=== PATIENT | female | born 1950 | race Caucasian/White ===

== ENCOUNTER 2018-05-28 09:28 | Observation (INO) | payer MEDICARE ==
[2018-05-28 10:54] LABS: Basophils % (Auto) 0.9 % (0.0-1.8); Eosinophils % (Auto) 0.3 % (0.0-4.3); Hematocrit 37.5 % (30.3-42.9); Lymphocytes % (Auto) 24.7 % (13.4-35.0); Mean Corpuscular HGB Conc 32 % (30-34); Mean Corpuscular Hemoglobin 26 pg (28-32); Mean Corpuscular Volume 81 fl (79-97); Monocytes # (Auto) 0.7 K/mm3 (0.0-0.8); Monocytes % (Auto) 15.9 % (0.0-7.3); Platelet Count 154 K/mm3 (140-440); Red Blood Count 4.61 M/mm3 (3.65-5.03); Red Cell Distribution Width 15.2 % (13.2-15.2)
[2018-05-28 11:05] LABS: BUN/Creatinine Ratio 16; Blood Urea Nitrogen 11 mg/dL (7-17); Calcium 9.4 mg/dL (8.4-10.2); Hemolysis Index 5
--- NOTE | 2018-05-28 11:32 | Emergency Department Report ---
ED Palpitations HPI - General Chief Complaint: Arrhythmia/Palpitations Stated Complaint: HEART FLUTTERS Time Seen by Provider: 05/28/18 11:18 Source: patient, EMS Mode of arrival: Stretcher Limitations: Other - History of Present Illness Initial Comments: 68yo female with PMHx of HTN, came in complaining of chest pain and palpitations. Per daughter pt was recently admitted to hospital in [place] and had workup done there for syncope and she was discharged and this morning she started to have palpitations and chest pain. Pt denies any fever, chills. Pt is under no acute distress. she is relaxing in bed MD Complaint: rapid heart beat Onset/Timin -: days(s) Context: occured during rest Associated Symptoms: chest pain. denies: shortness of breath, syncope, near- syncope, nausea/vomiting, anxiety, diaphoresis, cough, parasthesias, feeling of impending doom, muscle cramps - Related Data Home Medications Medication Instructions Recorded Confirmed Last Taken Amlodipine Besylate [Norvasc] 5 mg PO QDAY 03/10/18 03/10/18 Unknown AtorvaSTATin [Lipitor] 20 mg PO QHS 03/10/18 03/10/18 Unknown Quetiapine Fumarate [SEROquel] 50 mg PO QHS 03/10/18 03/10/18 Unknown clonazePAM 1 mg PO QDAY PRN 03/10/18 03/10/18 Unknown Allergies Allergy/AdvReac Type Severity Reaction Status Date / Time aspirin Allergy Hives Verified 03/10/18 00:19 shellfish derived Allergy Hives Verified 03/10/18 00:19 iv dye Allergy Hives Uncoded 03/10/18 00:19 ED Review of Systems ROS: Stated complaint: HEART FLUTTERS Other details as noted in HPI Constitutional: denies: chills, fever Eyes: denies: eye pain, eye discharge, vision change ENT: denies: ear pain, throat pain Respiratory: denies: cough, shortness of breath, wheezing Cardiovascular: denies: chest pain, palpitations Endocrine: no symptoms reported Gastrointestinal: denies: abdominal pain, nausea, diarrhea Genitourinary: denies: urgency, dysuria, discharge Musculoskeletal: denies: back pain, joint swelling, arthralgia Skin: denies: rash, lesions Neurological: denies: headache, weakness, paresthesias Psychiatric: denies: anxiety, depression Hematological/Lymphatic: denies: easy bleeding, easy bruising ED Past Medical Hx - Past Medical History Previous Medical History?: Yes Hx Hypertension: Yes Hx CVA: Yes Hx Heart Attack/AMI: No Hx Congestive Heart Failure: No Hx Deep Vein Thrombosis: No Hx Seizures: No Hx Dementia: Yes Additional medical history: "brain bleed" - Surgical History Past Surgical History?: Yes Hx Coronary Stent: No Hx Open Heart Surgery: No Hx Pacemaker: No Hx Internal Defibrillator: No Hx Cholecystectomy: Yes Hx Appendectomy: Yes Hx Breast Surgery: No - Social History Smoking Status: Never Smoker Substance Use Type: None - Medications Home Medications: Home Medications Medication Instructions Recorded Confirmed Last Taken Type Amlodipine Besylate [Norvasc] 5 mg PO QDAY 03/10/18 03/10/18 Unknown History AtorvaSTATin [Lipitor] 20 mg PO QHS 03/10/18 03/10/18 Unknown History Quetiapine Fumarate [SEROquel] 50 mg PO QHS 03/10/18 03/10/18 Unknown History clonazePAM 1 mg PO QDAY PRN 03/10/18 03/10/18 Unknown History ED Physical Exam - General Limitations: Other General appearance: alert, in no apparent distress - Head Head exam: Present: atraumatic, normocephalic - Eye Eye exam: Present: normal appearance - ENT ENT exam: Present: mucous membranes moist - Neck Neck exam: Present: normal inspection - Respiratory Respiratory exam: Present: normal lung sounds bilaterally. Absent: respiratory distress - Cardiovascular Cardiovascular Exam: Present: regular rate, normal rhythm. Absent: systolic murmur, diastolic murmur, rubs, gallop - GI/Abdominal GI/Abdominal exam: Present: soft, normal bowel sounds - Extremities Exam Extremities exam: Present: normal inspection - Back Exam Back exam: Present: normal inspection - Neurological Exam Neurological exam: Present: alert, oriented X3 - Psychiatric Psychiatric exam: Present: normal affect, normal mood - Skin Skin exam: Present: warm, dry, intact, normal color. Absent: rash ED Course Vital Signs 05/28/18 05/28/18 10:11 10:18 Temperature 97.5 F L Pulse Rate 72 Respiratory 14 Rate Blood Pressure 137/73 O2 Sat by Pulse 98 Oximetry 68yo female with palpitations and chest pain that is resolved, pts daughter states that she had a syncope workup done at [place] and now has had palpitations today, her chest pain is resolved at this time and will be admitted to hospitalist overnight ED Medical Decision Making - Lab Data Result diagrams: 05/28/18 10:27 05/28/18 10:27 Critical care attestation.: If time is entered above; I have spent that time in minutes in the direct care of this critically ill patient, excluding procedure time. ED Disposition Clinical Impression: Chest pain, Palpitations Disposition: OP ADMIT IP TO THIS HOSP Is pt being admited?: Yes Condition: Stable Instructions: Chest Pain (ED) Referrals: PRIMARY CARE, [Primary Care Provider] - 3-5 Days
[2018-05-28] MEDS ORDERED: PLAVIX PO ONE (11:34)
--- NOTE | 2018-05-28 11:43 | XRay Report ---
AP CHEST: HISTORY: Palpitations AP view of the chest demonstrates a normal mediastinal and cardiac contour with clear lungs and normal bony and soft tissue structures. IMPRESSION: Unremarkable AP chest. No change since 03/10/18.
[2018-05-28] MEDS ORDERED: ATIVAN PO ONE ×2 (12:33→16:44)
[2018-05-28] MEDS ORDERED: PERCOCET 5/325 PO PRN (20:50)
[2018-05-28] MEDS ORDERED: AMBIEN PO PRN (20:50)
[2018-05-28] MEDS ORDERED: SODIUM CHLORIDE FLUSH SYRINGE 10 ML IV PRN (20:50)
[2018-05-28] MEDS ORDERED: TYLENOL PO PRN (20:50)
[2018-05-28] MEDS ORDERED: ZOFRAN IV PRN (20:50)
[2018-05-28] MEDS ORDERED: MORPHINE IV PRN (20:50)
--- NOTE | 2018-05-28 20:50 | Event Note ---
Date: 05/28/18 Please see dictated history and physical in the reports Chest pain rule out [place] Ventricular arrhythmias
[2018-05-28] MEDS ORDERED: D5NS 1,000 ML IV SCH (21:00)
[2018-05-28] MEDS: SODIUM CHLORIDE FLUSH SYRINGE 10 ML IV SCH (21:34)
[2018-05-28] MEDS: HALDOL PO SCH (21:35)
[2018-05-28] MEDS: NORVASC PO SCH (21:36)
[2018-05-28] MEDS: PAXIL PO SCH (21:45)
[2018-05-28] MEDS ORDERED: BENADRYL PO SCH (22:00)
[2018-05-28 22:19] LABS: Bacteria,Urine 1+ /HPF (Negative); Bilirubin,Urine NEG (Negative); Blood,Urine SM (Negative); Color,Urine Yellow (Yellow); Protein,Urine <15 mg/dL mg/dL (Negative); Urobilinogen,Urine < 2.0 mg/dL (<2.0)
[2018-05-29 06:25] LABS: Basophils % (Auto) 0.6 % (0.0-1.8); Eosinophils % (Auto) 0.1 % (0.0-4.3); Hematocrit 39.1 % (30.3-42.9); Hemoglobin 12.7 gm/dl (10.1-14.3); Lymphocytes # (Auto) 0.9 K/mm3 (1.2-5.4); Lymphocytes % (Auto) 14.1 % (13.4-35.0); Mean Corpuscular HGB Conc 33 % (30-34); Mean Corpuscular Volume 80 fl (79-97); Monocytes # (Auto) 0.6 K/mm3 (0.0-0.8); Monocytes % (Auto) 9.8 % (0.0-7.3); Platelet Count 150 K/mm3 (140-440); Red Blood Count 4.91 M/mm3 (3.65-5.03); Red Cell Distribution Width 14.9 % (13.2-15.2)
[2018-05-29 06:33] LABS: Alanine Aminotransferase 13 units/L (7-56); BUN/Creatinine Ratio 13; Blood Urea Nitrogen 9 mg/dL (7-17); Calcium 8.9 mg/dL (8.4-10.2); Hemolysis Index 18
[2018-05-29 06:41] LABS: Mean Corpuscular Hemoglobin 26 pg (28-32)
--- NOTE | 2018-05-29 08:05 | History and Physical Report ---
CHIEF COMPLAINT: Palpitations and chest pain of 1-day duration. HISTORY OF PRESENT ILLNESS: A 68-year-old female who comes in for chest pain and palpitations. The patient was recently admitted to [facility] and workup was done for syncope and was discharged. Workup was negative. The patient continued to have palpitations and chest pain, hence the admission. No recent travel, other than the travel to [place]. No shortness of breath. No orthopnea. The patient has near syncope recently. No diaphoresis. No exacerbating or relieving factors. PAST MEDICAL HISTORY: Significant for hypertension, hyperlipidemia, bipolar disorder. CURRENT MEDICATIONS: Amlodipine 5 mg once a day, Lipitor 20 mg once a day, Seroquel 50 mg once a day, and clonazepam 1 mg p.o. daily. PAST SURGICAL HISTORY: Appendectomy in the past. SOCIAL HISTORY: Does not smoke. No alcohol. No recreational drugs. FAMILY HISTORY: Hypertension. REVIEW OF SYSTEMS: Significant for chest pain and palpitations. Slight shortness of breath on exertion. Otherwise, review of systems is negative. A 14-point review of systems done. PHYSICAL EXAMINATION: GENERAL: Elderly female, cooperative during examination. VITAL SIGNS: Blood pressure is 141/80, temperature 98.9, pulse is 93, respirations 18, sats are 99%. HEENT: Unremarkable. Pupils equal and reactive. NECK: Supple, no lymphadenopathy, no thyromegaly. LUNGS: Clear to auscultation and percussion. Good air entry. CARDIOVASCULAR: S1, S2 heard. No gallop, no murmur, no rub. Apical impulse in left fifth intercostal space and midclavicular line. ABDOMEN: Soft and benign. No hepatosplenomegaly. No guarding, no rigidity. Hernial orifices are normal. EXTREMITIES: Good pedal pulses. No pedal edema. CENTRAL NERVOUS SYSTEM: Alert and oriented x 4, nonfocal exam. LABORATORY DATA: Significant for white count of 4200, H and H is 12.0 and 37.5, platelet count of 154,000. CMP is negative. Urine pH is 8.0, otherwise negative. EKG shows frequent PVCs. Heart rate of about 76 per minute. Chest x-ray was no acute findings. Unremarkable AP chest. ASSESSMENT AND PLAN: 1. Chest pain, rule out myocardial infarction. Chest pain protocol. Lexiscan in the morning. 2. Dyspnea. Echocardiogram ordered. 3. Premature ventricular contractions. Cardiology consult requested for possible antiarrhythmics or no antiarrhythmics. 4. Hypertension. Continue amlodipine. 5. Hyperlipidemia. Continue atorvastatin 20 mg at bedtime. 6. Bipolar disorder. Continue Seroquel 50 mg p.o. at bedtime. 7. Deep venous thrombosis prophylaxis, Lovenox 40 mg subcutaneous daily. [facility]# [id number] VSM/NTS
[2018-05-29] MEDS ORDERED: LEXISCAN IV ONE (10:45)
[2018-05-29] MEDS: PAXIL PO SCH (12:06)
[2018-05-29] MEDS: HALDOL PO SCH (12:07)
[2018-05-29] MEDS: NORVASC PO SCH (12:12)
[2018-05-29] MEDS: SODIUM CHLORIDE FLUSH SYRINGE 10 ML IV SCH (12:17)
--- NOTE | 2018-05-29 14:34 | Progress Note ---
Hospitalist Physical - Constitutional Vitals: Temp Pulse Resp BP Pulse Ox 98.2 F 100 H 20 145/82 96 05/29/18 12:00 05/29/18 12:12 05/29/18 12:00 05/29/18 12:12 05/29/18 12:10 Results - Labs CBC & Chem 7: 05/29/18 02:49 05/29/18 02:49 Labs: Laboratory Last Values WBC 6.4 K/mm3 (4.5-11.0) 05/29/18 02:49 RBC 4.91 M/mm3 (3.65-5.03) 05/29/18 02:49 Hgb 12.7 gm/dl (10.1-14.3) 05/29/18 02:49 Hct 39.1 % (30.3-42.9) 05/29/18 02:49 MCV 80 fl (79-97) 05/29/18 02:49 MCH 26 pg (28-32) L 05/29/18 02:49 MCHC 33 % (30-34) 05/29/18 02:49 RDW 14.9 % (13.2-15.2) 05/29/18 02:49 Plt Count 150 K/mm3 (140-440) 05/29/18 02:49 Lymph % (Auto) 14.1 % (13.4-35.0) 05/29/18 02:49 [place] % (Auto) 9.8 % (0.0-7.3) H 05/29/18 02:49 Eos % (Auto) 0.1 % (0.0-4.3) 05/29/18 02:49 Baso % (Auto) 0.6 % (0.0-1.8) 05/29/18 02:49 Lymph # 0.9 K/mm3 (1.2-5.4) L 05/29/18 02:49 [place] # 0.6 K/mm3 (0.0-0.8) 05/29/18 02:49 Eos # 0.0 K/mm3 (0.0-0.4) 05/29/18 02:49 Baso # 0.0 K/mm3 (0.0-0.1) 05/29/18 02:49 Seg Neutrophils % 75.4 % (40.0-70.0) H 05/29/18 02:49 Seg Neutrophils # 4.9 K/mm3 (1.8-7.7) 05/29/18 02:49 Sodium 140 mmol/L (137-145) 05/29/18 02:49 Potassium 3.6 mmol/L (3.6-5.0) 05/29/18 02:49 Chloride 96.5 mmol/L (98-107) L 05/29/18 02:49 Carbon Dioxide 26 mmol/L (22-30) 05/29/18 02:49 Anion Gap 21 mmol/L 05/29/18 02:49 BUN 9 mg/dL (7-17) 05/29/18 02:49 Creatinine 0.7 mg/dL (0.7-1.2) 05/29/18 02:49 Estimated GFR > 60 ml/min 05/29/18 02:49 BUN/Creatinine Ratio 13 % 05/29/18 02:49 Glucose 84 mg/dL (65-100) 05/29/18 02:49 Hemoglobin A1c 5.8 % (4-6) 05/28/18 21:09 Calcium 8.9 mg/dL (8.4-10.2) 05/29/18 02:49 Magnesium 1.80 mg/dL (1.7-2.3) 05/29/18 08:48 Total Bilirubin 0.30 mg/dL (0.1-1.2) 05/29/18 02:49 AST 24 units/L (5-40) 05/29/18 02:49 ALT 13 units/L (7-56) 05/29/18 02:49 Alkaline Phosphatase 77 units/L (35-129) 05/29/18 02:49 Troponin T < 0.010 ng/mL (0.00-0.029) 05/29/18 08:48 Total Protein 6.8 g/dL (6.3-8.2) 05/29/18 02:49 Albumin 4.0 g/dL (3.9-5) 05/29/18 02:49 Albumin/Globulin Ratio 1.4 % 05/29/18 02:49 TSH 2.050 mlU/mL (0.270-4.200) 05/29/18 10:57 Urine Color Yellow (Yellow) 05/28/18 21:56 Urine Turbidity Clear (Clear) 05/28/18 21:56 Urine pH 8.0 (5.0-7.0) H 05/28/18 21:56 Ur Specific [place] 1.011 (1.003-1.030) 05/28/18 21:56 Urine Protein <15 mg/dl mg/dL (Negative) 05/28/18 21:56 Urine Glucose (UA) Neg mg/dL (Negative) 05/28/18 21:56 Urine Ketones Neg mg/dL (Negative) 05/28/18 21:56 Urine Blood Sm (Negative) 05/28/18 21:56 Urine Nitrite Neg (Negative) 05/28/18 21:56 Urine Bilirubin Neg (Negative) 05/28/18 21:56 Urine Urobilinogen < 2.0 mg/dL (<2.0) 05/28/18 21:56 Ur Leukocyte Esterase Neg (Negative) 05/28/18 21:56 Urine WBC (Auto) 2.0 /HPF (0.0-6.0) 05/28/18 21:56 Urine RBC (Auto) 8.0 /HPF (0.0-6.0) 05/28/18 21:56 U Epithel Cells (Auto) < 1.0 /HPF (0-13.0) 05/28/18 21:56 Urine Bacteria (Auto) 1+ /HPF (Negative) 05/28/18 21:56
--- NOTE | 2018-05-29 14:44 | Consultation ---
History of Present Illness Consult date: 05/29/18 Consult reason: other (palpitations) History of present illness: The patient is a 68-year-old woman who was admitted to the hospital reportedly with complaints of "palpitations" or "flutters". There was no report of his pain or shortness of breath On my assessment, the patient has advanced dementia. She is not oriented to time place and person and situation. My interview, he is unable to articulate any symptoms or the reason for her being in the hospital. Her poor mentation also manifested with patient referring to a hospital staff as her own daughter. Cardiac workup done includes ECG that showed a normal sinus rhythm with left axis deviation, otherwise normal ECG. Cardiac enzymes are negative. A recent echocardiogram February 2018 demonstrated well-preserved left ventricular systolic function with ejection fraction 50-55%. A thallium stress test was ordered by the medical service in addition to a cardiac consultation. Past History Past Medical History: hypertension Medications and Allergies Allergies Allergy/AdvReac Type Severity Reaction Status Date / Time aspirin Allergy Hives Verified 03/10/18 00:19 shellfish derived Allergy Hives Verified 03/10/18 00:19 iv dye Allergy Hives Uncoded 03/10/18 00:19 Home Medications Medication Instructions Recorded Confirmed Last Taken Type Amlodipine Besylate [Norvasc] 5 mg PO QDAY 03/10/18 05/28/18 05/27/18 History AtorvaSTATin [Lipitor] 20 mg PO QHS 03/10/18 05/28/18 05/27/[address] [DepaKOTE DR] 500 mg PO BID 05/28/18 05/28/18 05/27/18 History Haloperidol [Haldol] 1 mg PO BID 05/28/18 05/28/18 05/27/18 History PARoxetine [Paxil] 20 mg PO DAILY 05/28/18 05/28/18 05/27/18 History diphenhydrAMINE [Benadryl CAP] 50 mg PO QHS 05/28/18 05/28/18 05/27/18 History Active Meds: Active Medications Acetaminophen (Tylenol) 650 mg PO Q4H PRN PRN Reason: Pain MILD(1-3)/Fever >100.5/GONZALEZ Amlodipine Besylate (Norvasc) 5 mg PO QDAY RITO Last Admin: 05/29/18 12:12 Dose: 5 mg Atorvastatin Calcium (Lipitor) 20 mg PO QHS [facility] Last Admin: 05/28/18 21:36 Dose: 20 mg Diphenhydramine HCl (Benadryl) 50 mg PO QHS [facility] Last Admin: 05/28/18 21:35 Dose: 50 mg Divalproex Sodium (Depakote Dr) 500 mg PO BID [facility] Last Admin: 05/29/18 12:07 Dose: 500 mg Enoxaparin Sodium (Lovenox) 40 mg SUB-Q QDAY@2200 [facility] Haloperidol (Haldol) 1 mg PO BID [facility] Last Admin: 05/29/18 12:07 Dose: 1 mg Dextrose/Sodium Chloride (D5ns) 1,000 mls @ 75 mls/hr IV DIRECT [facility] Last Admin: 05/28/18 21:33 Dose: 75 mls/hr Morphine Sulfate (Morphine) 2 mg IV Q4H PRN PRN Reason: Pain, Moderate (4-6) Ondansetron HCl (Zofran) 4 mg IV Q8H PRN PRN Reason: Nausea And Vomiting Oxycodone/Acetaminophen (Percocet 5/325) 1 tab PO Q6H PRN PRN Reason: Pain, Moderate (4-6) Last Admin: 05/29/18 12:08 Dose: 1 tab Paroxetine HCl (Paxil) 20 mg PO DAILY [facility] Last Admin: 05/29/18 12:06 Dose: 20 mg Sodium Chloride (Sodium Chloride Flush Syringe 10 Ml) 10 ml IV BID [facility] Last Admin: 05/29/18 12:17 Dose: 10 ml Sodium Chloride (Sodium Chloride Flush Syringe 10 Ml) 10 ml IV PRN PRN PRN Reason: LINE FLUSH Zolpidem Tartrate (Ambien) 5 mg PO QHS PRN PRN Reason: Insomnia Review of Systems ROS unobtainable: due to mental status Physical Examination Vital Signs Pulse Resp BP 72 10 L 137/73 05/28/18 10:09 05/28/18 10:09 05/28/18 10:09 General appearance: no acute distress, other (patient is confused and disoriented due to advanced dementia) HEENT: Positive: PERRL Neck: Positive: neck supple Cardiac: Positive: Reg Rate and Rhythm Lungs: Positive: clear to auscultation Neuro: Positive: Grossly Intact Abdomen: Positive: Soft Female genitourinary: deferred Skin: Positive: Clear Extremities: Absent: edema Results 05/29/18 02:49 05/29/18 02:49 Cardiac Enzymes 05/29/18 Range/Units 02:49 AST 24 (5-40) units/L CBC 05/29/18 Range/Units 02:49 WBC 6.4 (4.5-11.0) K/mm3 RBC 4.91 (3.65-5.03) M/mm3 Hgb 12.7 (10.1-14.3) gm/dl Hct 39.1 (30.3-42.9) % Plt Count 150 (140-440) K/mm3 Lymph # 0.9 L (1.2-5.4) K/mm3 [place] # 0.6 (0.0-0.8) K/mm3 Eos # 0.0 (0.0-0.4) K/mm3 Baso # 0.0 (0.0-0.1) K/mm3 Comprehensive Metabolic Panel 05/29/18 Range/Units 02:49 Sodium 140 (137-145) mmol/L Potassium 3.6 (3.6-5.0) mmol/L Chloride 96.5 L (98-107) mmol/L Carbon Dioxide 26 (22-30) mmol/L BUN 9 (7-17) mg/dL Creatinine 0.7 (0.7-1.2) mg/dL Glucose 84 (65-100) mg/dL Calcium 8.9 (8.4-10.2) mg/dL AST 24 (5-40) units/L ALT 13 (7-56) units/L Alkaline Phosphatase 77 (35-129) units/L Total Protein 6.8 (6.3-8.2) g/dL Albumin 4.0 (3.9-5) g/dL EKG interpretations - Telemetry EKG Rhythm: Sinus Rhythm Assessment and Plan - Patient Problems (1) Palpitations Current Visit: Yes Status: Acute Plan to address problem: Due to advanced dementia, I am unable to elicit any specific symptoms that would warrant further cardiac workup. Stress test will be canceled, patient is stable for discharge from a cardiac standpoint. If there is further subjective or objective evidence for arrhythmias, as outpatient we will recommend extended event monitoring.
--- NOTE | 2018-05-29 15:42 | Discharge Summary ---
Providers - Providers Date of Admission: 05/28/18 12:21 Date of discharge: 05/29/18 Attending physician: USMAN WEBB 05/28/18 20:50 Consult to Physician [CONS] Routine Comment: Consulting Provider: USMAN RUFF Physician Instructions: Reason For Exam: arrhythmias Primary care physician: VP HR [facility]ERS[facility] Hospitalization Condition: Fair Hospital course: Patient is 68 yo with dementia, hypertension, presented with chest pain and palpitations. Troponin was normal. She was admitted to rule out acute coronary . Cardiology was consulted and she was evaluated,. Patient had just had workup for syncope and chest pain recently at another hospital. She was therefore discharged home to follow as outpatient. Disposition: TO HOME OR SELFCARE - Discharge Diagnoses (1) Chest pain Status: Acute (2) Dementia Status: Acute (3) Hypokalemia Status: Acute (4) Palpitations Status: Acute (5) GERD (gastroesophageal reflux disease) Status: Acute (6) GERD (gastroesophageal reflux disease) Status: Acute Core Measure Documentation - Palliative Care Palliative Care/ Comfort Measures: Not Applicable - Core Measures Any of the following diagnoses?: none Exam - Constitutional Vitals: Temp Pulse Resp BP Pulse Ox 98.2 F 100 H 20 145/82 96 05/29/18 12:00 05/29/18 12:12 05/29/18 12:00 05/29/18 12:12 05/29/18 12:10 General appearance: Present: no acute distress Plan Activity: advance as tolerated Diet: low fat, low cholesterol, low salt Additional Instructions: 1.Follow up with PCP or [facility] in 1 week. 2.Follow up with Dr. Mesa, Cardiology in 1 week Follow up with: PRIMARY MD GUILLERMO [Primary Care Provider] - 3-5 Days
[2018-05-29 17:33] VITALS: BP 150/73
[2018-05-29] MEDS ORDERED: LOVENOX SUB-Q SCH (22:00)
--- NOTE | 2018-06-04 15:05 | Query- Chest Pain ---
Christi Adame___Luis Antonio Date:___06/04/2018 Jelena/CDS:__Melvina/Ken Phone#:___[phone] Exercise your independent professional judgment when responding to query. Questions asked do not imply a particular answer is desired or expected. We greatly appreciate your clarification on this issue. Clinical Documentation States: 68 Year old female was admitted on 05/28/2018 for arrhythmia. The H&P stated "Chest pain R/O [place]." Please document the etiology of Chest Pain: [ ] Myocardial Infarction [ ] Pneumonia [ ] Mediastinitis [ ] Costochondritis [ ] Pulmonary Embolism [ ] Coronary Artery Disease [x ] GERD [ ] Other: [ ] Comment/Explanation: Present on Admission: [x ] Yes (Y) [ ] Clinically undeterminable (W) [ ] No(N) Please document response in your Progress Notes and/or Discharge Summary and indicate if the condition was present on admission. MIGUEL
== END 2018-05-29 18:00 | disposition home or self-care (01) ==
LOC: ED 09:28 → INTOOBSV 12:21 → 4A 12:21
PROVIDERS: ADMIT Internal Medicine; ATTEND Internal Medicine
DX: R07.89 Other chest pain (principal); R00.2 Palpitations; I49.3 Ventricular premature depolarization; I10 Essential (primary) hypertension; E78.5 Hyperlipidemia, unspecified; E87.6 Hypokalemia; K21.9 Gastro-esophageal reflux disease without esophagitis; F31.9 Bipolar disorder, unspecified; F03.90 Unspecified dementia, unspecified severity, without behavioral disturbance, psychotic disturbance, mood disturbance, and anxiety; Z82.49 Family history of ischemic heart disease and other diseases of the circulatory system; Z86.73 Personal history of transient ischemic attack (TIA), and cerebral infarction without residual deficits
CPT/HCPCS: 36415; 71045; 80048; 80053; 81001; 83036; 83735; 84443; 84484; 85025; 87086; 93005; 93010; 96360; 96361; 99285; A9270; G0378; J2785; J7042

== ENCOUNTER 2019-01-02 18:12 | Inpatient (IN) | payer MEDICARE ==
[2019-01-02] MEDS ORDERED: ATIVAN IM STA (18:33)
--- NOTE | 2019-01-02 18:34 | Emergency Department Report ---
ED General Adult HPI - General Chief complaint: Neuro Symptoms/Deficit Stated complaint: NEURO ISSUES Time Seen by Provider: 01/02/19 18:28 Source: family, EMS (ems notes not available at time of chart dictation), RN notes reviewed, old records reviewed Mode of arrival: Stretcher Limitations: Altered Mental Status, Physical Limitation - History of Present Illness Initial comments: This is a 68-year-old female. The patient has a past medical history of stroke, dementia. History obtained from her daughter, Mrs. Deanna Velazquez; [phone] Patient is brought to the hospital by EMS for possible stroke and altered mental status. Last known well time was 6:00 PM last night. As per the daughter, patient has been walking with an unsteady gait, swinging and falling to the side, may have had a left-sided facial droop, and perhaps at one point had left arm weakness. These symptoms appear to have resolved. The patient denies complaints at this point in time. The patient's family indicates no fevers, cough, urinary symptoms that they're aware of. The patient is demented, and cannot describe exacerbating or relieving factors, qualitative nature of her symptoms, radiation, exacerbating or relieving factors. -: days(s) Location: left, upper extremity, lower extremity Quality: other Consistency: other Improves with: other Worsens with: other Associated Symptoms: confusion, weakness - Related Data Home Medications Medication Instructions Recorded Confirmed Last Taken RX: Amlodipine Besylate [Norvasc] 5 mg PO QDAY 03/10/18 01/02/19 1 Day Ago ~01/01/19 RX: AtorvaSTATin [Lipitor] 20 mg PO QHS 03/10/18 01/02/19 1 Day Ago ~01/01/19 RX: PARoxetine [Paxil] 20 mg PO DAILY 05/28/18 01/02/19 1 Day Ago ~01/01/19 RX: diphenhydrAMINE [Benadryl CAP] 50 mg PO QHS 05/28/18 01/02/19 1 Day Ago ~01/01/19 Benztropine [Cogentin] See Protocol PO QDAY 01/02/19 01/02/19 1 Day Ago ~01/01/19 Clopidogrel [Plavix] 75 mg PO QDAY 01/02/19 01/02/19 1 Day Ago ~01/01/19 Memantine HCl [Namenda] 10 mg PO BID 01/03/19 01/03/19 2 Days Ago ~01/01/19 RX: traZODone [Desyrel] 50 mg PO HS 01/03/19 01/03/19 2 Days Ago ~01/01/19 clonazePAM [Klonopin] 1 mg PO TID PRN 01/03/19 01/03/19 2 Days Ago ~01/01/19 Allergies Allergy/AdvReac Type Severity Reaction Status Date / Time aspirin Allergy Hives Verified 03/10/18 00:19 shellfish derived Allergy Hives Verified 03/10/18 00:19 iv dye Allergy Hives Uncoded 03/10/18 00:19 ED Review of Systems ROS: Stated complaint: NEURO ISSUES Other details as noted in HPI Comment: Unobtainable due to pts medical conditions ED Past Medical Hx - Past Medical History Hx Hypertension: Yes Hx CVA: Yes Hx Heart Attack/AMI: No Hx Congestive Heart Failure: No Hx Deep Vein Thrombosis: No Hx Seizures: No Hx Dementia: Yes Additional medical history: "brain bleed" - Surgical History Hx Coronary Stent: No Hx Open Heart Surgery: No Hx Pacemaker: No Hx Internal Defibrillator: No Hx Cholecystectomy: Yes Hx Appendectomy: Yes Hx Breast Surgery: No - Social History Smoking Status: Unknown if ever smoked - Medications Home Medications: Home Medications Medication Instructions Recorded Confirmed Last Taken Type RX: Amlodipine Besylate [Norvasc] 5 mg PO QDAY 03/10/18 01/02/19 1 Day Ago History ~01/01/19 RX: AtorvaSTATin [Lipitor] 20 mg PO QHS 03/10/18 01/02/19 1 Day Ago History ~01/01/19 RX: PARoxetine [Paxil] 20 mg PO DAILY 05/28/18 01/02/19 1 Day Ago History ~01/01/19 RX: diphenhydrAMINE [Benadryl CAP] 50 mg PO QHS 05/28/18 01/02/19 1 Day Ago History ~01/01/19 Benztropine [Cogentin] See Protocol PO QDAY 01/02/19 01/02/19 1 Day Ago History ~01/01/19 Clopidogrel [Plavix] 75 mg PO QDAY 01/02/19 01/02/19 1 Day Ago History ~01/01/19 Memantine HCl [Namenda] 10 mg PO BID 01/03/19 01/03/19 2 Days Ago History ~01/01/19 RX: traZODone [Desyrel] 50 mg PO HS 01/03/19 01/03/19 2 Days Ago History ~01/01/19 clonazePAM [Klonopin] 1 mg PO TID PRN 01/03/19 01/03/19 2 Days Ago History ~01/01/19 ED Physical Exam - General Limitations: Altered Mental Status, Physical Limitation General appearance: alert, anxious - Head Head exam: Present: atraumatic, normocephalic - Eye Eye exam: Present: normal appearance, EOMI. Absent: nystagmus - ENT ENT exam: Present: normal exam, normal orophraynx, mucous membranes moist, normal external ear exam - Neck Neck exam: Present: normal inspection, full ROM. Absent: tenderness, m eningismus - Respiratory Respiratory exam: Present: normal lung sounds bilaterally. Absent: respiratory distress - Cardiovascular Cardiovascular Exam: Present: regular rate, normal rhythm, normal heart sounds. Absent: bradycardia, tachycardia, irregular rhythm, systolic murmur, diastolic murmur, rubs, gallop - GI/Abdominal GI/Abdominal exam: Present: soft. Absent: distended, tenderness, guarding, rebound, rigid, pulsatile mass - Extremities Exam Extremities exam: Present: normal inspection, full ROM, pedal edema, other (2+ pulses noted in the bilateral upper, lower extremities. Compartments soft. No long bony tenderness. The pelvis is stable.). Absent: calf tenderness - Back Exam Back exam: Present: normal inspection, full ROM. Absent: tenderness, CVA tenderness (R), paraspinal tenderness, vertebral tenderness - Neurological Exam Neurological exam: Present: alert (alert to name. Follows commands. Does not know where she is. Does not know the month, day or week.), other (Extraocular movements intact. Tongue midline. No facial droop. Facial sensation intact to light touch in the V1, V2, V3 distribution bilaterally. 5 and 5 strength in 4 extremities.. Sensation is intact to light touch in 4 extremities.) - Psychiatric Psychiatric exam: Present: anxious - Skin Skin exam: Present: warm, dry, intact, normal color. Absent: rash ED Course Vital Signs 01/02/19 01/02/19 01/02/19 18:31 19:48 19:50 Temperature Pulse Rate Respiratory Rate Blood Pressure 174/82 138/96 138/96 Blood Pressure [Right] O2 Sat by Pulse 79 L Oximetry 01/02/19 01/02/19 01/02/19 20:00 20:15 20:16 Temperature 97.8 F Pulse Rate 55 L Respiratory 18 15 Rate Blood Pressure 124/72 Blood Pressure 124/72 [Right] O2 Sat by Pulse 100 98 Oximetry 01/02/19 01/02/19 01/02/19 20:25 21:15 23:41 Temperature Pulse Rate Respiratory Rate Blood Pressure 136/96 143/73 126/69 Blood Pressure [Right] O2 Sat by Pulse 100 100 Oximetry 01/03/19 00:13 Temperature 97.9 F Pulse Rate 66 Respiratory 18 Rate Blood Pressure 148/81 Blood Pressure 126/69 [Right] O2 Sat by Pulse 99 Oximetry - Reevaluation(s) Reevaluation #1: 01/02/19 19:49 Differential diagnosis, including not limited to: TIA, pneumonia, urinary tract infection, worsening dementia, physical debility Assessment and plan: 68-year-old female was less than well time was more than 24 hours prior to presentation, with an NIH score of 1 (for confusion), not saying TPA candidate for endovascular candidate given last known well time, with nonspecific examination. Patient moving 4 extremities, and has no obvious facial droop. Screening laboratory studies reviewed and are essentially unremarkable with the exception of mild hypokalemia. X-ray of the chest unremarkable, pelvis x-ray unremarkable, CT scan of the brain, cervical spine pending interpretation. Extensive discussion had with the patient's daughter regarding patient's underlying dementia. Daughter has given verbal permission for chemical sedation and physical restraint, if necessary, to allow for diagnostic workup. Reevaluation #2: 01/02/19 19:[address] Seven Easton to follow up on ct head ct c spine and contact hospital team to arrange admission Reevaluation #3: 01/03/19 10:18 ct head c spine negative ED Medical Decision Making - Lab Data Result diagrams: 01/02/19 19:09 01/02/19 19:09 Lab Results 01/02/19 01/02/19 01/02/19 Range/Units 19:09 19:09 19:09 WBC 4.9 (4.5-11.0) K/mm3 RBC 4.60 (3.65-5.03) M/mm3 Hgb 12.1 (10.1-14.3) gm/dl Hct 37.3 (30.3-42.9) % MCV 81 (79-97) fl MCH 26 L (28-32) pg MCHC 33 (30-34) % RDW 16.0 H (13.2-15.2) % Plt Count 175 (140-440) K/mm3 Lymph % (Auto) 13.9 (13.4-35.0) % [place] % (Auto) 7.4 H (0.0-7.3) % Eos % (Auto) 0.3 (0.0-4.3) % Baso % (Auto) 0.6 (0.0-1.8) % Lymph # 0.7 L (1.2-5.4) K/mm3 [place] # 0.4 (0.0-0.8) K/mm3 Eos # 0.0 (0.0-0.4) K/mm3 Baso # 0.0 (0.0-0.1) K/mm3 Seg Neutrophils % 77.8 H (40.0-70.0) % Seg Neutrophils # 3.8 (1.8-7.7) K/mm3 PT 13.2 (12.2-14.9) Sec. INR 0.95 (0.87-1.13) APTT 26.3 (24.2-36.6) Sec. Thrombin Time 17.3 (15.1-19.6) Sec. Sodium 139 (137-145) mmol/L Potassium 3.2 L (3.6-5.0) mmol/L Chloride 98.8 (98-107) mmol/L Carbon Dioxide 25 (22-30) mmol/L Anion Gap 18 mmol/L BUN 10 (7-17) mg/dL Creatinine 1.0 (0.7-1.2) mg/dL Estimated GFR 55 ml/min BUN/Creatinine Ratio 10 % Glucose 84 (65-100) mg/dL Calcium 9.4 (8.4-10.2) mg/dL Total Bilirubin 0.50 (0.1-1.2) mg/dL AST 17 (5-40) units/L ALT 8 (7-56) units/L Alkaline Phosphatase 67 (35-129) units/L Total Creatine Kinase 180 H (30-135) units/L CK-MB (CK-2) 1.1 (0.0-4.0) ng/mL CK-MB (CK-2) Rel Index 0.6 (0-4) Troponin T < 0.010 (0.00-0.029) ng/mL Total Protein 7.5 (6.3-8.2) g/dL Albumin 3.9 (3.9-5) g/dL Albumin/Globulin Ratio 1.1 % - EKG Data -: EKG Interpreted by Me EKG shows normal: sinus rhythm Rate: normal - EKG Data 01/02/19 19:51 Sinus, 83 bpm, QTC prolonged, left axis deviation, poor R-wave progression, abnormal EKG, not consistent with ST elevation myocardial infarction. - Radiology Data Radiology results: pending, image reviewed interpreted by me: X-ray the chest, x-ray of the pelvis negative for acute disease. DJD is noted. Critical care attestation.: If time is entered above; I have spent that time in minutes in the direct care of this critically ill patient, excluding procedure time. ED Disposition Clinical Impression: TIA (transient ischemic attack) Disposition: 09 OP ADMIT IP TO THIS HOSP Is pt being admited?: Yes Does the pt Need Aspirin: Yes Condition: Good - Assessment Assessment Interval: Baseline - Level of Consciousness 1a. Level of Consciousness: alert/keenly responsive - LOC Questions 1b. LOC Questions: answers 1 question correctly - LOC Command 1c. LOC Commands: performs tasks correctly - Best Gaze 2. Best Gaze: normal - Visual 3. Visual: no visual loss - Facial Palsy 4. Facial Palsy: normal symmetrical movement - Motor Arm 5b. Motor Arm Right: no drift 5a. Motor Arm Left: no drift - Motor Leg 6b. Motor Leg Right: no drift 6a. Motor Leg Left: no drift - Limb Ataxia 7. Limb Ataxia: absent - Sensory 8. Sensory: normal - Best Language 9. Best Language: no aphasia - Dysarthria 10. Dysarthria: normal - Extinction and Inattention 11. Extinction/Inattention: no abnormality - Scoring Total Score: 1 Stroke Severity: Minor Stroke
[2019-01-02 19:21] LABS: Basophils % (Auto) 0.6 % (0.0-1.8); Eosinophils % (Auto) 0.3 % (0.0-4.3); Hematocrit 37.3 % (30.3-42.9); Hemoglobin 12.1 gm/dl (10.1-14.3); Lymphocytes # (Auto) 0.7 K/mm3 (1.2-5.4); Lymphocytes % (Auto) 13.9 % (13.4-35.0); Mean Corpuscular HGB Conc 33 % (30-34); Mean Corpuscular Volume 81 fl (79-97); Monocytes # (Auto) 0.4 K/mm3 (0.0-0.8); Monocytes % (Auto) 7.4 % (0.0-7.3); Platelet Count 175 K/mm3 (140-440)
[2019-01-02 19:33] LABS: INR 0.95 (0.87-1.13)
[2019-01-02 19:34] LABS: Partial Thromboplastin Time 26.3 Sec. (24.2-36.6); Thrombin Time 17.3 Sec. (15.1-19.6)
[2019-01-02 19:38] LABS: Creatine Kinase MB 1.1 ng/mL (0.0-4.0)
[2019-01-02 19:39] LABS: Alanine Aminotransferase 8 units/L (7-56); Albumin 3.9 g/dL (3.9-5); BUN/Creatinine Ratio 10; Blood Urea Nitrogen 10 mg/dL (7-17); Calcium 9.4 mg/dL (8.4-10.2); Hemolysis Index 17
[2019-01-02] MEDS ORDERED: K-DUR PO ONE ×2 (19:46→23:08)
--- NOTE | 2019-01-02 19:48 | Cat Scan Report ---
FINAL REPORT EXAM: CT HEAD/BRAIN WO CON HISTORY: Stroke symptoms TECHNIQUE: CT head without contrast PRIORS: None. FINDINGS: No acute intra-axial or extra-axial hemorrhage is identified. There is no evidence of midline shift or mass effect. There is some generalized age related volume loss.. Brown-white matter differentiation is intact. No acute parenchymal abnormalities seen. Bony calvarium is grossly intact. Visualized portions of the mastoids and paranasal sinuses are unre markable. IMPRESSION: No acute intracranial findings
--- NOTE | 2019-01-02 19:57 | Cat Scan Report ---
FINAL REPORT EXAM: CT CERVICAL SPINE WO CON HISTORY: falls ams cant clear c spine TECHNIQUE: CT cervical spine with reconstructions PRIORS: None. FINDINGS: Vertebral bodies demonstrate normal height and alignment. There is disc space narrowing C4-C5-C5-C6 a nd C6-C7 with marginal anterior and posterior vertebral body osteophytes. The facet joints demonstrat e normal alignment. The spinous processes are intact. Craniocervical junction is unremarkable. C1 a nd C2 are intact. IMPRESSION: Degenerative disc disease from C4-C5 through C6-C7 No acute abnormality seen.
[2019-01-02] MEDS ORDERED: PLAVIX PO ONE (20:05)
[2019-01-02] MEDS ORDERED: PLAVIX ONE (23:09)
[2019-01-02] MEDS: HALDOL PO SCH (23:22)
[2019-01-03 01:43] LABS: Creatine Kinase MB 1.6 ng/mL (0.0-4.0)
[2019-01-03 06:44] LABS: Creatine Kinase MB 1.7 ng/mL (0.0-4.0)
--- NOTE | 2019-01-03 08:03 | History and Physical Report ---
CHIEF COMPLAINT: Weakness of the left side of the body. Other complaints include altered mental status and left facial drooping. HISTORY OF PRESENT ILLNESS: The patient is a 68-year-old female noted by the daughter who was giving the history that the patient had some change in mental status and was having unsteady gait, swaggering and falling to the left side with some left-sided weakness and left facial drooping. Also, there was no history of speech impairment. No history of visual impairment. EMS was called and the patient brought to the Emergency Room. PAST MEDICAL HISTORY: Pertinent for hypotension, cerebrovascular accident with left-sided weakness, dementia, and hemorrhagic stroke in the past. PAST SURGICAL HISTORY: Pertinent for cholecystectomy and appendectomy. FAMILY HISTORY: Noncontributory. SOCIAL HISTORY: The patient does not smoke, does not drink alcohol, and does not use illicit drugs. MEDICATIONS: The patient is on amlodipine besylate 5 mg by mouth daily, Lipitor 20 mg by mouth at bedtime, Depakote 500 mg by mouth twice daily, haloperidol 1 mg by mouth twice daily, Paxil 20 mg by mouth daily, Benadryl 50 mg by mouth at bedtime. ALLERGIES: The patient is allergic to ASPIRIN, SHELLFISH, IV DYE. REVIEW OF SYSTEMS: CONSTITUTIONAL: There is no fever, no chills, no diaphoresis. HEENT: There is no headache or sore throat. CARDIOVASCULAR SYSTEM: There is no chest pain or orthopnea. RESPIRATORY SYSTEM: There is no shortness of breath or cough. GASTROINTESTINAL SYSTEM: There is no nausea, no vomiting, no abdominal pain, diarrhea or constipation. NEUROLOGICAL SYSTEM: Left-sided weakness noted, left facial drooping noted. No altered mental status noted. MUSCULOSKELETAL SYSTEM: Weakness on the left side of the body noted. No joint swelling. DERMATOLOGICAL SYSTEM: There is no skin rash or itching. GENITOURINARY SYSTEM: There is no dysuria, hematuria, or flank pain. Rest of system review is normal. PHYSICAL EXAMINATION: GENERAL: At the time of exam, the patient was found to be alert, oriented to person only and not in acute distress. VITAL SIGNS: Shows temperature of 97.8, pulse of 65, respirations 16, blood pressure 124/72, O2 sat of 98% on room air. HEENT: Showed pupils to be equal, round, and reactive to light and accommodating. Extraocular motions are intact. NECK: Supple with no JVD or carotid bruits. CARDIOVASCULAR SYSTEM: Showed normal first and second heart sounds with no gallops or murmurs. RESPIRATORY SYSTEM: Showed good air entry on both sides of the lungs with no abnormal breath sounds. GASTROINTESTINAL SYSTEM: Showed abdomen to be full, soft, nontender with no organomegaly or rigidity. NEUROLOGIC: Showed weakness of the muscles on the left side compared to the right with no drooling of the face noted at this time and no loss of sensory function. Muscle strength is grade 2/6 on the left upper extremity compared to grade 5/6 on the right and muscle strength on the left lower extremity is grade 3/6 compared to grade 6/6 on the right. MUSCULOSKELETAL SYSTEM: Showed no joint swelling or tenderness. DERMATOLOGICAL SYSTEM: Showed no skin rash. GENITOURINARY SYSTEM: Showed no costovertebral angle tenderness. PERTINENT LABORATORY AND IMAGING STUDIES: The patient has CT of the head without contrast done that shows no acute intracranial process. Also, the patient has cervical CT done that shows degenerative disk disease from C4 to C5 through C6 to C7. The patient's lab results showed CBC with normal white count, normal hemoglobin and normal hematocrit with CBC differential showing elevated segmented neutrophil of 77.8%. The patient's potassium level showed a slightly lower level of 3.2 and the rest of chemistry was remarkable except for slight increase in total CPK of 180 with normal CK-MB and normal CK-MB percentage index as well as normal troponin DIAGNOSES: 1. Transient ischemic attack. 2. Hypokalemia. PLAN OF ACTION: 1. The patient will be admitted as inpatient to telemetry. 2. The patient will have MRI of the brain without contrast done this morning. 3. The patient will have bilateral carotid Doppler done this morning as well as 2D echo done this morning. 4. The patient will have physical therapy consult to evaluate and treat this morning and also speech therapy consult to evaluate and treat this morning. 5. The patient will remain n.p.o. until she passes the swallow test. 6. The patient will be on oxygen by nasal cannula at 2 liters per minute. 7. The patient will be on home medication as shown in the medication reconciliation section. 8. If the patient remains in the hospital until Saturday when the neurologist will be available, the patient will have neurology consult, but can always have a teleneurology consult if need be. JOB# [id number] OCN/NTS ASHERD
[2019-01-03] MEDS ORDERED: ASPIRIN PO ONE (11:00)
--- NOTE | 2019-01-03 13:04 | Progress Note ---
Assessment and Plan Assessment and plan: 68-year-old woman with past medical history of CVA, dementia, chronic left-sided weakness, previous hemorrhagic stroke in the past. The patient was brought in by daughter for altered mental status, which she described as unsteady swaggering gait and falling to her side, with worsening left-sided weakness. Per nursing staff patient has been refusing to open her mouth to eat or swallow anything Diagnosis Acute CVA? Dementia Hypokalemia Altered mental status Acute metabolic encephalopathy Plan Patient admitted on stroke protocol fup carotid dopplers pending echo and MRI/MRA brain Neurology consult Potassium has been repleted History Interval history: Afebrile Patient has been altered and confused, she has not been cooperative She has refused to open her mouth or ingest anything, refuse all her medications She was sent down for echocardiogram, but she was agitated and non-cooperative There is no vomiting, no obvious shortness of breath, patient has been confused but has not been violent Hospitalist Physical - Physical exam Narrative exam: General.: Appears well, no distress, nontoxic HEENT: Moist mucous membranes, extraocular muscles intact, no lymphadenopathy Neck: supple Cardiac: S1-S2 heard Lungs: clear to auscultation bilaterally Abdomen: soft , nontender, nondistended, bowel sounds positive Extremities: no edema clubbing or cyanosis Skin: no rash or lesions Neurologic: Patient is confused, no focal weakness Psych: Patient is confused - Constitutional Vitals: Temp Pulse Resp BP Pulse Ox 97.5 F L 56 L 16 133/7 96 01/03/19 12:00 01/03/19 12:00 01/03/19 12:00 01/03/19 12:00 01/03/19 12:00 Results - Labs CBC & Chem 7: 01/02/19 19:09 01/03/19 13:26 Labs: Laboratory Last Values WBC 4.9 K/mm3 (4.5-11.0) 01/02/19 19:09 RBC 4.60 M/mm3 (3.65-5.03) 01/02/19 19:09 Hgb 12.1 gm/dl (10.1-14.3) 01/02/19 19:09 Hct 37.3 % (30.3-42.9) 01/02/19 19:09 MCV 81 fl (79-97) 01/02/19 19:09 MCH 26 pg (28-32) L 01/02/19 19:09 MCHC 33 % (30-34) 01/02/19 19:09 RDW 16.0 % (13.2-15.2) H 01/02/19 19:09 Plt Count 175 K/mm3 (140-440) 01/02/19 19:09 Lymph % (Auto) 13.9 % (13.4-35.0) 01/02/19 19:09 [place] % (Auto) 7.4 % (0.0-7.3) H 01/02/19 19:09 Eos % (Auto) 0.3 % (0.0-4.3) 01/02/19 19:09 Baso % (Auto) 0.6 % (0.0-1.8) 01/02/19 19:09 Lymph # 0.7 K/mm3 (1.2-5.4) L 01/02/19 19:09 [place] # 0.4 K/mm3 (0.0-0.8) 01/02/19 19:09 Eos # 0.0 K/mm3 (0.0-0.4) 01/02/19 19:09 Baso # 0.0 K/mm3 (0.0-0.1) 01/02/19 19:09 Seg Neutrophils % 77.8 % (40.0-70.0) H 01/02/19 19:09 Seg Neutrophils # 3.8 K/mm3 (1.8-7.7) 01/02/19 19:09 PT 13.2 Sec. (12.2-14.9) 01/02/19 19:09 INR 0.95 (0.87-1.13) 01/02/19 19:09 APTT 26.3 Sec. (24.2-36.6) 01/02/19 19:09 Thrombin Time 17.3 Sec. (15.1-19.6) 01/02/19 19:09 Sodium 139 mmol/L (137-145) 01/02/19 19:09 Potassium 3.2 mmol/L (3.6-5.0) L 01/02/19 19:09 Chloride 98.8 mmol/L (98-107) 01/02/19 19:09 Carbon Dioxide 25 mmol/L (22-30) 01/02/19 19:09 Anion Gap 18 mmol/L 01/02/19 19:09 BUN 10 mg/dL (7-17) 01/02/19 19:09 Creatinine 1.0 mg/dL (0.7-1.2) 01/02/19 19:09 Estimated GFR 55 ml/min 01/02/19 19:09 BUN/Creatinine Ratio 10 % 01/02/19 19:09 Glucose 84 mg/dL (65-100) 01/02/19 19:09 Calcium 9.4 mg/dL (8.4-10.2) 01/02/19 19:09 Total Bilirubin 0.50 mg/dL (0.1-1.2) 01/02/19 19:09 AST 17 units/L (5-40) 01/02/19 19:09 ALT 8 units/L (7-56) 01/02/19 19:09 Alkaline Phosphatase 67 units/L (35-129) 01/02/19 19:09 Total Creatine Kinase 255 units/L (30-135) H 01/03/19 05:12 CK-MB (CK-2) 1.7 ng/mL (0.0-4.0) 01/03/19 05:12 CK-MB (CK-2) Rel Index 0.6 (0-4) 01/03/19 05:12 Troponin T < 0.010 ng/mL (0.00-0.029) 01/03/19 05:12 Total Protein 7.5 g/dL (6.3-8.2) 01/02/19 19:09 Albumin 3.9 g/dL (3.9-5) 01/02/19 19:09 Albumin/Globulin Ratio 1.1 % 01/02/19 19:09
[2019-01-03] MEDS ORDERED: ATIVAN IV NR (13:15)
--- NOTE | 2019-01-03 13:24 | Vascular Lab Report ---
FINAL REPORT EXAM: VL CAROTID DUPLEX BILAT HISTORY: TIA TECHNIQUE: Grayscale and color and spectral Doppler ultrasound imaging of the carotid arteries was p erformed. PRIORS: None. FINDINGS: Study is limited due to combative patient. No areas of complete occlusion. Normal waveforms are seen throughout. No aneurysm. Calcified atherosclerotic plaque is seen bilaterally. Normal flow is seen in the external carotid arteries. Antegrade flow is seen in the vertebral arteries. Peak systolic velocities in cm/s below: Right: CCA: 67 proximally, 47 distally ICA: 52 proximally, 64 mid, not visualized distally ECA: 50 Left: CCA: 95 proximally, 75 distally ICA: 52 proximally, 45 mid, not visualized distally ECA: 127 The right ICA:CCA ratio is 0.97. The left ICA:CCA ratio is 0.55. IMPRESSION: Less than 50 percent stenosis of the internal carotid arteries.
[2019-01-03] MEDS: NORVASC PO SCH (17:15)
[2019-01-03] MEDS: PAXIL PO SCH (17:16)
[2019-01-03] MEDS: HALDOL PO SCH ×2 (17:17→22:14)
[2019-01-03] MEDS: DESYREL PO SCH (22:14)
[2019-01-03] MEDS: BENADRYL PO SCH (22:16)
[2019-01-03] MEDS: NAMENDA PO SCH (22:16)
[2019-01-04] MEDS: PAXIL PO SCH (12:44)
[2019-01-04] MEDS: PLAVIX PO SCH (12:45)
[2019-01-04] MEDS: HALDOL PO SCH ×2 (12:45→23:11)
[2019-01-04] MEDS: COGENTIN PO SCH (12:49)
[2019-01-04] MEDS: NORVASC PO SCH (12:56)
[2019-01-04] MEDS: NAMENDA PO SCH ×2 (13:00→23:11)
--- NOTE | 2019-01-04 14:00 | Progress Note ---
Assessment and Plan Assessment and plan: 68-year-old woman with past medical history of CVA, dementia, chronic left-sided weakness, previous hemorrhagic stroke in the past. The patient was brought in by daughter for altered mental status, which she described as unsteady swaggering gait and falling to her side, with worsening left-sided weakness. all symptoms are now resolved Diagnosis Acute CVA? vs TIA? Dementia Hypokalemia Altered mental status Acute metabolic encephalopathy Systolic CHF, compensated Plan Patient admitted on stroke protocol carotid dopplers no sig stenosis echo shows EF of 40%, get stress test and cardiology consult fup MRI/MRA brain Neurology consult pending Potassium has been repleted History Interval history: Afebrile Patient has been altered and confused, she has not been cooperative no cough, no vomiting restless, which is her baseline There is no vomiting, no obvious shortness of breath, patient has been confused but has not been violent Hospitalist Physical - Physical exam Narrative exam: General.: Appears well, no distress, nontoxic HEENT: Moist mucous membranes, extraocular muscles intact, no lymphadenopathy Neck: supple Cardiac: S1-S2 heard Lungs: clear to auscultation bilaterally Abdomen: soft , nontender, nondistended, bowel sounds positive Extremities: no edema clubbing or cyanosis Skin: no rash or lesions Neurologic: Patient is confused,no focal weakness restless, which is her baseline Psych: Patient is confused, demented at baseline - Constitutional Vitals: Temp Pulse Resp BP Pulse Ox 97.4 F L 88 16 136/74 96 01/04/19 12:40 01/04/19 12:56 01/04/19 04:13 01/04/19 12:56 01/04/19 12:40 Results - Labs CBC & Chem 7: 01/02/19 19:09 01/03/19 13:26 Labs: Laboratory Last Values WBC 4.9 K/mm3 (4.5-11.0) 01/02/19 19:09 RBC 4.60 M/mm3 (3.65-5.03) 01/02/19 19:09 Hgb 12.1 gm/dl (10.1-14.3) 01/02/19 19:09 Hct 37.3 % (30.3-42.9) 01/02/19 19:09 MCV 81 fl (79-97) 01/02/19 19:09 MCH 26 pg (28-32) L 01/02/19 19:09 MCHC 33 % (30-34) 01/02/19 19:09 RDW 16.0 % (13.2-15.2) H 01/02/19 19:09 Plt Count 175 K/mm3 (140-440) 01/02/19 19:09 Lymph % (Auto) 13.9 % (13.4-35.0) 01/02/19 19:09 [place] % (Auto) 7.4 % (0.0-7.3) H 01/02/19 19:09 Eos % (Auto) 0.3 % (0.0-4.3) 01/02/19 19:09 Baso % (Auto) 0.6 % (0.0-1.8) 01/02/19 19:09 Lymph # 0.7 K/mm3 (1.2-5.4) L 01/02/19 19:09 [place] # 0.4 K/mm3 (0.0-0.8) 01/02/19 19:09 Eos # 0.0 K/mm3 (0.0-0.4) 01/02/19 19:09 Baso # 0.0 K/mm3 (0.0-0.1) 01/02/19 19:09 Seg Neutrophils % 77.8 % (40.0-70.0) H 01/02/19 19:09 Seg Neutrophils # 3.8 K/mm3 (1.8-7.7) 01/02/19 19:09 PT 13.2 Sec. (12.2-14.9) 01/02/19 19:09 INR 0.95 (0.87-1.13) 01/02/19 19:09 APTT 26.3 Sec. (24.2-36.6) 01/02/19 19:09 Thrombin Time 17.3 Sec. (15.1-19.6) 01/02/19 19:09 Sodium 139 mmol/L (137-145) 01/02/19 19:09 Potassium 3.5 mmol/L (3.6-5.0) L 01/03/19 13:26 Chloride 98.8 mmol/L (98-107) 01/02/19 19:09 Carbon Dioxide 25 mmol/L (22-30) 01/02/19 19:09 Anion Gap 18 mmol/L 01/02/19 19:09 BUN 10 mg/dL (7-17) 01/02/19 19:09 Creatinine 1.0 mg/dL (0.7-1.2) 01/02/19 19:09 Estimated GFR 55 ml/min 01/02/19 19:09 BUN/Creatinine Ratio 10 % 01/02/19 19:09 Glucose 84 mg/dL (65-100) 01/02/19 19:09 Calcium 9.4 mg/dL (8.4-10.2) 01/02/19 19:09 Total Bilirubin 0.50 mg/dL (0.1-1.2) 01/02/19 19:09 AST 17 units/L (5-40) 01/02/19 19:09 ALT 8 units/L (7-56) 01/02/19 19:09 Alkaline Phosphatase 67 units/L (35-129) 01/02/19 19:09 Total Creatine Kinase 255 units/L (30-135) H 01/03/19 05:12 CK-MB (CK-2) 1.7 ng/mL (0.0-4.0) 01/03/19 05:12 CK-MB (CK-2) Rel Index 0.6 (0-4) 01/03/19 05:12 Troponin T < 0.010 ng/mL (0.00-0.029) 01/03/19 05:12 Total Protein 7.5 g/dL (6.3-8.2) 01/02/19 19:09 Albumin 3.9 g/dL (3.9-5) 01/02/19 19:09 Albumin/Globulin Ratio 1.1 % 01/02/19 19:09 Nutrition/Malnutrition Assess - Dietary Evaluation Nutrition/Malnutrition Findings: Nutrition Notes Start: 01/03/19 13:47 Freq: Status: Active Protocol: Document 01/03/19 13:47 MARINO (Rec: 01/03/19 13:53 MARINO [id number] [email or web address]) Nutrition Notes Need for Assessment generated from: [employer] MST Initial or Follow up Assessment Current Diagnosis Stroke Other Pertinent Diagnosis TIA, Dementia Current Diet NPO Labs/Tests Reviewed Pertinent Medications Reviewed Height 5 ft 4 in Weight 44.39 kg [place] Body Weight (kg) 54.54 BMI 16.7 Weight Status Underweight Subjective/Other Information Pt screened for skin (Zackary score: 16) and malnutrition risks (poor appetite). Pt is confused and no family present at time of visit. MD ordered swallow eval. Burn Absent Trauma Absent Food Allergy Yes #2 Nutrition Diagnosis Underweight Etiology advanced age/dementia, poor appetite As Evidenced by Signs and Symptoms BMI 16.7 #1 Nutrition Diagnosis Inadequate oral intake Etiology recent TIA As Evidenced by Signs and Symptoms pt NPO Is patient on ventilator? No Is Patient Ambulatory and/or Out of Bed No REE-([facility]-confined to bed) 1144.872 Kcal/Kg value to use for calculation 35 Approximate Energy Requirements Using 1554 kcal/Kg Calculation Used for Recommendations Kcal/kg Additional Notes Pro needs 1.2-1.5g/k-67g/ day Fluid needs 1ml/kcal Nutrition Intervention Change Diet Order: Diet advancement when medically feasible Goal #1 Advance diet to meet nutrient needs Goal #2 Wt maintenance and/or gain Anticipated Discharge Needs: Unable to identify at this time Follow-Up By: 01/05/19 Additional Comments F/U: diet advancement, need for ONS
[2019-01-04] MEDS: DESYREL PO SCH (23:10)
[2019-01-04] MEDS: BENADRYL PO SCH (23:11)
--- NOTE | 2019-01-05 08:18 | Progress Note ---
Assessment and Plan Assessment and plan: 68-year-old woman with past medical history of CVA, dementia, chronic left-sided weakness, previous hemorrhagic stroke in the past. The patient was brought in by daughter for altered mental status, which she described as unsteady swaggering gait and falling to her side, with worsening left-sided weakness. Diagnosis Acute CVA? Dementia Hypokalemia Altered mental status Acute metabolic encephalopathy Plan Patient admitted on stroke protocol fup carotid dopplers pending echo and MRI/MRA brain Neurology consult pending Potassium has been repleted History Interval history: Afebrile Patient has been altered and confused, she has been cooperative no cough, no vomiting restless, which is her baseline There is no vomiting, no obvious shortness of breath, patient has been confused but has not been violent Hospitalist Physical - Physical exam Narrative exam: General.: Appears well, no distress, nontoxic HEENT: Moist mucous membranes, extraocular muscles intact, no lymphadenopathy Neck: supple Cardiac: S1-S2 heard Lungs: clear to auscultation bilaterally Abdomen: soft , nontender, nondistended, bowel sounds positive Extremities: no edema clubbing or cyanosis Skin: no rash or lesions Neurologic: Patient is confused, no focal weakness Psych: Patient is confused - Constitutional Vitals: Temp Pulse Resp BP Pulse Ox 98.0 F 52 L 18 119/60 100 01/05/19 04:40 01/05/19 04:40 01/05/19 04:40 01/05/19 04:40 01/05/19 04:40 Results - Labs CBC & Chem 7: 01/02/19 19:09 01/05/19 09:49 Labs: Laboratory Last Values WBC 4.9 K/mm3 (4.5-11.0) 01/02/19 19:09 RBC 4.60 M/mm3 (3.65-5.03) 01/02/19 19:09 Hgb 12.1 gm/dl (10.1-14.3) 01/02/19 19:09 Hct 37.3 % (30.3-42.9) 01/02/19 19:09 MCV 81 fl (79-97) 01/02/19 19:09 MCH 26 pg (28-32) L 01/02/19 19:09 MCHC 33 % (30-34) 01/02/19 19:09 RDW 16.0 % (13.2-15.2) H 01/02/19 19:09 Plt Count 175 K/mm3 (140-440) 01/02/19 19:09 Lymph % (Auto) 13.9 % (13.4-35.0) 01/02/19 19:09 [place] % (Auto) 7.4 % (0.0-7.3) H 01/02/19 19:09 Eos % (Auto) 0.3 % (0.0-4.3) 01/02/19 19:09 Baso % (Auto) 0.6 % (0.0-1.8) 01/02/19 19:09 Lymph # 0.7 K/mm3 (1.2-5.4) L 01/02/19 19:09 [place] # 0.4 K/mm3 (0.0-0.8) 01/02/19 19:09 Eos # 0.0 K/mm3 (0.0-0.4) 01/02/19 19:09 Baso # 0.0 K/mm3 (0.0-0.1) 01/02/19 19:09 Seg Neutrophils % 77.8 % (40.0-70.0) H 01/02/19 19:09 Seg Neutrophils # 3.8 K/mm3 (1.8-7.7) 01/02/19 19:09 PT 13.2 Sec. (12.2-14.9) 01/02/19 19:09 INR 0.95 (0.87-1.13) 01/02/19 19:09 APTT 26.3 Sec. (24.2-36.6) 01/02/19 19:09 Thrombin Time 17.3 Sec. (15.1-19.6) 01/02/19 19:09 Sodium 139 mmol/L (137-145) 01/02/19 19:09 Potassium 3.5 mmol/L (3.6-5.0) L 01/03/19 13:26 Chloride 98.8 mmol/L (98-107) 01/02/19 19:09 Carbon Dioxide 25 mmol/L (22-30) 01/02/19 19:09 Anion Gap 18 mmol/L 01/02/19 19:09 BUN 10 mg/dL (7-17) 01/02/19 19:09 Creatinine 1.0 mg/dL (0.7-1.2) 01/02/19 19:09 Estimated GFR 55 ml/min 01/02/19 19:09 BUN/Creatinine Ratio 10 % 01/02/19 19:09 Glucose 84 mg/dL (65-100) 01/02/19 19:09 Calcium 9.4 mg/dL (8.4-10.2) 01/02/19 19:09 Total Bilirubin 0.50 mg/dL (0.1-1.2) 01/02/19 19:09 AST 17 units/L (5-40) 01/02/19 19:09 ALT 8 units/L (7-56) 01/02/19 19:09 Alkaline Phosphatase 67 units/L (35-129) 01/02/19 19:09 Total Creatine Kinase 255 units/L (30-135) H 01/03/19 05:12 CK-MB (CK-2) 1.7 ng/mL (0.0-4.0) 01/03/19 05:12 CK-MB (CK-2) Rel Index 0.6 (0-4) 01/03/19 05:12 Troponin T < 0.010 ng/mL (0.00-0.029) 01/03/19 05:12 Total Protein 7.5 g/dL (6.3-8.2) 01/02/19 19:09 Albumin 3.9 g/dL (3.9-5) 01/02/19 19:09 Albumin/Globulin Ratio 1.1 % 01/02/19 19:09 Nutrition/Malnutrition Assess - Dietary Evaluation Nutrition/Malnutrition Findings: Nutrition Notes Start: 01/03/19 13:47 Freq: Status: Active Protocol: Document 01/03/19 13:47 MARINO (Rec: 01/03/19 13:53 [facility] SRW- [email or web address]) Nutrition Notes Need for Assessment generated from: [employer] MST Initial or Follow up Assessment Current Diagnosis Stroke Other Pertinent Diagnosis TIA, Dementia Current Diet NPO Labs/Tests Reviewed Pertinent Medications Reviewed Height 5 ft 4 in Weight 44.39 kg [place] Body Weight (kg) 54.54 BMI 16.7 Weight Status Underweight Subjective/Other Information Pt screened for skin (Zackary score: 16) and malnutrition risks (poor appetite). Pt is confused and no family present at time of visit. MD ordered swallow eval. Burn Absent Trauma Absent Food Allergy Yes #2 Nutrition Diagnosis Underweight Etiology advanced age/dementia, poor appetite As Evidenced by Signs and Symptoms BMI 16.7 #1 Nutrition Diagnosis Inadequate oral intake Etiology recent TIA As Evidenced by Signs and Symptoms pt NPO Is patient on ventilator? No Is Patient Ambulatory and/or Out of Bed No REE-([facility]-confined to bed) 1144.872 Kcal/Kg value to use for calculation 35 Approximate Energy Requirements Using 1554 kcal/Kg Calculation Used for Recommendations Kcal/kg Additional Notes Pro needs 1.2-1.5g/k-67g/ day Fluid needs 1ml/kcal Nutrition Intervention Change Diet Order: Diet advancement when medically feasible Goal #1 Advance diet to meet nutrient needs Goal #2 Wt maintenance and/or gain Anticipated Discharge Needs: Unable to identify at this time Follow-Up By: 01/05/19 Additional Comments F/U: diet advancement, need for ONS
[2019-01-05 10:23] LABS: BUN/Creatinine Ratio 11; Blood Urea Nitrogen 9 mg/dL (7-17); Calcium 9.2 mg/dL (8.4-10.2); Hemolysis Index 11
[2019-01-05] MEDS: HALDOL PO SCH (10:37)
[2019-01-05] MEDS: PLAVIX PO SCH (10:37)
[2019-01-05] MEDS: PAXIL PO SCH (10:37)
[2019-01-05] MEDS: NORVASC PO SCH (10:37)
[2019-01-05] MEDS: COGENTIN PO SCH (10:40)
[2019-01-05] MEDS: NAMENDA PO SCH ×2 (10:40→21:15)
--- NOTE | 2019-01-05 11:10 | Magnetic Resonance Report ---
MRA HEAD WITHOUT CONTRAST HISTORY: CVA. [id number] imaging with MIP reformations of the [place] is submitted. Resolution of images limited due to patient motion. The arteries appear widely patent and free of hemodynamically significant stenosis, aneurysm or dissection. IMPRESSION: Slightly limited exam. No large vessel occlusion or aneurysm is identified.
--- NOTE | 2019-01-05 11:10 | Magnetic Resonance Report ---
MRI OF THE BRAIN WITHOUT CONTRAST: HISTORY: CVA PROCEDURE: Multiplanar, multisequence MR imaging of the brain without IV contrast was performed. FINDINGS: Moderate diffuse volume loss and mild nonspecific chronic periventricular white matter changes are identified. MRI demonstrates a chronic hemorrhagic infarct in the postero-medial right frontal lobe measuring 1.5 x 0.8 cm on T2 axial image 7 and gradient image 19. The gradient images also demonstrate numerous tiny chronic foci of microhemorrhage suggestive of amyloid angiopathy No evidence for acute ischemia, acute hemorrhage or mass. No or extra-axial fluid collection. The midline structures are central. The basal cisterns are patent. Normal ventricular size. The orbital cavities and sella turcica demonstrate no abnormality. The visualized paranasal sinuses and mastoid air cells are well aerated. IMPRESSION: No acute intracranial process is identified. Volume loss. Chronic white matter changes. Chronic hemorrhagic infarct in the right posterior frontal lobe as described. The gradient images demonstrate evidence for numerous previous chronic microhemorrhages which could represent amyloid angiopathy or other vasculitis.
--- NOTE | 2019-01-05 15:19 | XRay Report ---
FINAL REPORT EXAM: XR PELVIS 1-2V HISTORY: falls weakness TECHNIQUE: AP pelvis PRIORS: None. FINDINGS: No acute fractures are identified. The pubic symphysis and SI joints are intact. No evidence of hip fracture or dislocation. No bony lesions are identified. IMPRESSION: Negative no acute abnormalities seen
--- NOTE | 2019-01-05 15:28 | XRay Report ---
FINAL REPORT EXAM: XR CHEST 1V AP HISTORY: ams falls cva TECHNIQUE: upright single view chest PRIORS: None. FINDINGS: Cardiac and mediastinal contours are unremarkable. No focal pulmonary infiltrate is identified. No pleural fluid collection seen. Pulmonary vasculature is unremarkable. IMPRESSION: Negative single-view chest
--- NOTE | 2019-01-05 18:38 | Consultation ---
History of Present Illness Consult date: 01/05/19 Reason for Consult: left weakness History of present illness: This is a 68 YO F who presented to the ED with AMS and weaker on the left. Pt with history of hemorrhagic stroke on the right frontal lobe. On my arrival pt is sleeping, no family available. All history is as per chart. Past History Past Medical History: stroke, other (dementia) Past Surgical History: Other (unable to obtain) Social history: other (unable to obtain) Family history: other (unable to obtain) Medications and Allergies Allergies Allergy/AdvReac Type Severity Reaction Status Date / Time aspirin Allergy Hives Verified 03/10/18 00:19 shellfish derived Allergy Hives Verified 03/10/18 00:19 iv dye Allergy Hives Uncoded 03/10/18 00:19 Home Medications Medication Instructions Recorded Confirmed Last Taken Type Amlodipine Besylate [Norvasc] 5 mg PO QDAY 03/10/18 01/02/19 1 Day Ago History ~01/01/19 AtorvaSTATin [Lipitor] 20 mg PO QHS 03/10/18 01/02/19 1 Day Ago History ~01/01/19 diphenhydrAMINE [Benadryl CAP] 50 mg PO QHS 05/28/18 01/02/19 1 Day Ago History ~01/01/19 Benztropine [Cogentin] See Protocol PO QDAY 01/02/19 01/02/19 1 Day Ago History ~01/01/19 Clopidogrel [Plavix] 75 mg PO QDAY 01/02/19 01/02/19 1 Day Ago History ~01/01/19 Memantine HCl [Namenda] 10 mg PO BID 01/03/19 01/03/19 2 Days Ago History ~01/01/19 clonazePAM [Klonopin] 1 mg PO TID PRN 01/03/19 01/03/19 2 Days Ago History ~01/01/19 traZODone [Desyrel] 50 mg PO HS 01/03/19 01/03/19 2 Days Ago History ~01/01/19 Active Meds: Active Medications Amlodipine Besylate (Norvasc) 5 mg PO QDAY [facility] Last Admin: 01/05/19 10:37 Dose: 5 mg Documented by: Atorvastatin Calcium (Lipitor) 20 mg PO QHS [facility] Last Admin: 01/04/19 23:10 Dose: 20 mg Documented by: Benztropine Mesylate (Cogentin) 1 mg PO QDAY [facility] Last Admin: 01/05/19 10:40 Dose: 1 mg Documented by: Clonazepam (Klonopin) 1 mg PO TID PRN PRN Reason: AGITATION Last Admin: 01/05/19 08:31 Dose: 1 mg Documented by: Clopidogrel Bisulfate (Plavix) 75 mg PO QDAY [facility] Last Admin: 01/05/19 10:37 Dose: 75 mg Documented by: Diphenhydramine HCl (Benadryl) 50 mg PO QHS [facility] Last Admin: 01/04/19 23:11 Dose: 50 mg Documented by: Memantine (Namenda) 10 mg PO BID [facility] Last Admin: 01/05/19 10:40 Dose: 10 mg Documented by: Trazodone HCl (Desyrel) 50 mg PO HS [facility] Last Admin: 01/04/19 23:10 Dose: 50 mg Documented by: Review of Systems ROS unobtainable: due to mental status Physical Examination - Vital Signs Vital Signs: Vital Signs BP 174/82 01/02/19 18:31 - Constitutional General appearance: comfortable - EENT EENT: Present: PERRL - Respiratory Respiratory: Present: lungs clear - Cardiovascular Cardiovascular: Present: regular rate - Gastrointestinal Gastrointestinal: Present: normoactive bowel sounds - Neurologic Cranial nerve examination: PERRL, EOMI, V1/V2/V3 grossly intact, face symmetric Detailed motor examination: other (pt not cooperative with motor exam. Tone appropriate) Detailed sensory examination: pain Reflexes: 1+: ankle, bicep, knee, tricep - Additional Exam Additional Exam: MRI chronic r frontal lobe hemorrhage, chronic microhemorrhages. Echo and carotids reviewed. MRI with no signs of vasculitis, no large vessel occlusion - Assessment Assessment Interval: Baseline - Level of Consciousness 1a. Level of Consciousness: alert/keenly responsive - LOC Questions 1b. LOC Questions: answers 1 question correctly - LOC Command 1c. LOC Commands: performs tasks correctly - Best Gaze 2. Best Gaze: normal - Visual 3. Visual: no visual loss - Facial Palsy 4. Facial Palsy: normal symmetrical movement - Motor Arm 5b. Motor Arm Right: no drift - Motor Leg 6a. Motor Leg Left: no drift - Limb Ataxia 7. Limb Ataxia: absent - Sensory 8. Sensory: normal - Best Language 9. Best Language: no aphasia - Dysarthria 10. Dysarthria: normal - Extinction and Inattention 11. Extinction/Inattention: no abnormality Results - Laboratory Findings CBC and BMP: 01/02/19 19:09 01/05/19 09:49 Abnormal Lab Findings: Abnormal Labs 01/02/19 01/02/19 01/03/19 19:09 19:09 01:07 MCH 26 L RDW 16.0 H [place] % (Auto) 7.4 H Lymph # 0.7 L Seg Neutrophils % 77.8 H Potassium 3.2 L Chloride Total Creatine Kinase 180 H 251 H 01/03/19 01/03/19 01/05/19 05:12 13:26 09:49 MCH RDW [place] % (Auto) Lymph # Seg Neutrophils % Potassium 3.5 L 3.1 L Chloride 96.2 L Total Creatine Kinase 255 H Assessment and Plan This is a 68 YO F with left sided weakness, AMS. Pt likely encephaloapthic, Suspect metabolic cause, MRI only with chronic changes. Recommend: Check UA, TSH, B 12 , folate Review meds for potential cause Continue care for all medical issues as you are doing Recurrent left sided weakness likely decompensation of previous stroke No signs of vasculitis on MRA, follow up with Neurology outpatient for chronic microhemorrhages, pt might have amyloid angiopathy but this can be followed outpatient, nothing to do acutely. Please contact if there are questions.
[2019-01-05] MEDS: BENADRYL PO SCH (21:15)
[2019-01-05] MEDS: DESYREL PO SCH (21:15)
--- NOTE | 2019-01-06 11:04 | Discharge Summary ---
Providers - Providers Date of Admission: 01/02/19 21:09 Attending physician: LASHON STACK MD 01/03/19 06:00 Physical Therapy Evaluation and Treat [CONS] Routine Comment: Reason For Exam: TIA Speech Therapy Evaluation and Treat [CONS] Routine Reason For Exam: dysphagia 01/03/19 13:02 Occupational Therapy Evaluate and Treat [CONS] Routine Comment: Reason For Exam: cva 01/05/19 08:10 Consult to Physician [CONS] Routine Comment: Consulting Provider: JADA LIGHT Physician Instructions: Reason For Exam: cva Primary care physician: JERMAIN ROSARIO Hospitalization Condition: Good Hospital course: 68-year-old woman with past medical history of CVA, dementia, chronic left-sided weakness, previous hemorrhagic stroke in the past. The patient was brought in by daughter for altered mental status, which she described as unsteady swaggering gait and falling to her side, with worsening left-sided weakness. Per nursing staff patient has been refusing to open her mouth to eat or swallow anything Diagnosis Acute CVA? Dementia Hypokalemia Altered mental status Acute metabolic encephalopathy Plan Patient admitted on stroke protocol fup carotid dopplers pending echo and MRI/MRA brain Neurology consult Potassium has been repleted Disposition: [id number] HOME UNDER HOME [facility] Time spent for discharge: 33 mins Core Measure Documentation - Palliative Care Palliative Care/ Comfort Measures: Not Applicable - Core Measures Any of the following diagnoses?: none Exam - Physical Exam Narrative exam: General.: Appears well, no distress, nontoxic HEENT: Moist mucous membranes, extraocular muscles intact, no lymphadenopathy Neck: supple Cardiac: S1-S2 heard Lungs: clear to auscultation bilaterally Abdomen: soft , nontender, nondistended, bowel sounds positive Extremities: no edema clubbing or cyanosis Skin: no rash or lesions Neurologic: Patient is confused, no focal weakness Psych: Patient is confused - Constitutional Vitals: Temp Pulse Resp BP Pulse Ox 97.4 F L 62 18 128/70 66 L 01/06/19 07:37 01/06/19 03:19 01/06/19 07:37 01/06/19 07:37 01/06/19 03:19 Plan Follow up with: JERMAIN ROSARIO MD [Primary Care Provider] - 7 Days Prescriptions: Potassium Chloride [K-Dur] 20 meq PO QDAY #30 tablet
[2019-01-06] MEDS ORDERED: K-DUR PO NR (11:30)
[2019-01-06] MEDS: NORVASC PO SCH (11:45)
[2019-01-06] MEDS: COGENTIN PO SCH (12:18)
[2019-01-06] MEDS: PLAVIX PO SCH (12:18)
[2019-01-06] MEDS: NAMENDA PO SCH ×2 (12:18→22:30)
[2019-01-06] MEDS: DESYREL PO SCH (22:30)
[2019-01-06] MEDS: BENADRYL PO SCH (22:30)
--- NOTE | 2019-01-07 13:03 | XRay Report ---
AP CHEST: HISTORY: Hypoxia AP view of the chest demonstrates a normal mediastinal and cardiac contour with clear lungs and normal bony and soft tissue structures. IMPRESSION: Unremarkable AP chest. No change since 01/02/19
[2019-01-07] MEDS: COGENTIN PO SCH (18:02)
[2019-01-07] MEDS: NAMENDA PO SCH (18:02)
[2019-01-07] MEDS: PLAVIX PO SCH (18:02)
[2019-01-07] MEDS: NORVASC PO SCH (18:02)
--- NOTE | 2019-01-07 19:44 | Cat Scan Report ---
FINAL REPORT PROCEDURE: CT HEAD/BRAIN WO CON TECHNIQUE: Computerized tomography of the head was performed without contrast material. HISTORY: AMS COMPARISON: 01/02/2019 FINDINGS: There are diffuse involutional changes, with prominence of the ventricles and the sulci. The intracra nial arteries are symmetric in density. No CT evidence of intracranial mass, hemorrhage, acute territ orial infarction, or hydrocephalus. The intracranial arteries are symmetric in density. Calvarium is intact. There is stable deformity of bilateral nasal bones. IMPRESSION: No CT evidence of acute abnormality
[2019-01-07] MEDS ORDERED: NACL 0.45% 1000 ML IV SCH (22:00)
--- NOTE | 2019-01-07 23:49 | Progress Note ---
Assessment and Plan Assessment and plan: 68-year-old woman with past medical history of CVA, dementia, chronic left-sided weakness, previous hemorrhagic stroke in the past. The patient was brought in by daughter for altered mental status, which she described as unsteady swaggering gait and falling to her side, with worsening left-sided weakness. Diagnosis Acute CVA has been ruled out Dementia Hypokalemia Altered mental status Acute metabolic and toxic encephalopathy Plan MR neg for acute stroke MR does show chronic hemorrhagic cva she was seen by neurology who agreed with the plan -k was repleted -Her home med list was innacurate at time of admission, she received multiple sedative meds which she does not take at home due to this error including Depakoke, haldol and drew carroll, they have all been dc and home med list was corrected -awaiting for them to wear off and for her Mentation to return to [facility]; home with service when mentation improved History Interval history: Afebrile Patient has been altered and confused, now very somnolent, she is usually restless at [facility] no cough, no vomiting There is no vomiting, no obvious shortness of breath, patient has been confused but has not been violent Hospitalist Physical - Physical exam Narrative exam: General.: Appears well, no distress, nontoxic HEENT: Moist mucous membranes, extraocular muscles intact, no lymphadenopathy Neck: supple Cardiac: S1-S2 heard Lungs: clear to auscultation bilaterally Abdomen: soft , nontender, nondistended, bowel sounds positive Extremities: no edema clubbing or cyanosis Skin: no rash or lesions Neurologic: Patient is confused, no focal weakness, she is very somnolent Psych: Patient is confused - Constitutional Vitals: Temp Pulse Resp BP Pulse Ox 98.0 F 115 H 18 123/72 53 L 01/07/19 20:09 01/07/19 20:09 01/07/19 20:09 01/07/19 20:09 01/07/19 20:09 Results - Labs CBC & Chem 7: 01/02/19 19:09 01/05/19 09:49 Labs: Laboratory Last Values WBC 4.9 K/mm3 (4.5-11.0) 01/02/19 19:09 RBC 4.60 M/mm3 (3.65-5.03) 01/02/19 19:09 Hgb 12.1 gm/dl (10.1-14.3) 01/02/19 19: Hct 37.3 % (30.3-42.9) 01/02/19 19: MCV 81 fl (79-97) 01/02/19 19:09 MCH 26 pg (28-32) L 01/02/19 19: MCHC 33 % (30-34) 01/02/19 19: RDW 16.0 % (13.2-15.2) H 01/02/19 19: Plt Count 175 K/mm3 (140-440) 01/02/19 19:09 Lymph % (Auto) 13.9 % (13.4-35.0) 01/02/19 19: [place] % (Auto) 7.4 % (0.0-7.3) H 01/02/19 19: Eos % (Auto) 0.3 % (0.0-4.3) 01/02/19: Baso % (Auto) 0.6 % (0.0-1.8) 01/02/19 19: Lymph # 0.7 K/mm3 (1.2-5.4) L 01/02/19: [place] # 0.4 K/mm3 (0.0-0.8) 01/02/19 19: Eos # 0.0 K/mm3 (0.0-0.4) 01/02/19 19: Baso # 0.0 K/mm3 (0.0-0.1) 01/02/19 19: Seg Neutrophils % 77.8 % (40.0-70.0) H 01/02/19 19: Seg Neutrophils # 3.8 K/mm3 (1.8-7.7) 01/02/19 19: PT 13.2 Sec. (12.2-14.9) 01/02/19 19: INR 0.95 (0.87-1.13) 01/02/19 19: APTT 26.3 Sec. (24.2-36.6) 01/02/19 19: Thrombin Time 17.3 Sec. (15.1-19.6) 01/02/19 19: Sodium 139 mmol/L (137-145) 01/05/19 09:49 Potassium 3.1 mmol/L (3.6-5.0) L 01/05/19 09:49 Chloride 96.2 mmol/L (98-107) L 01/05/19 09:49 Carbon Dioxide 28 mmol/L (22-30) 01/05/19 09:49 Anion Gap 18 mmol/L 01/05/19 09:49 BUN 9 mg/dL (7-17) 01/05/19 09:49 Creatinine 0.8 mg/dL (0.7-1.2) 01/05/19 09:49 Estimated GFR > 60 ml/min 01/05/19 09:49 BUN/Creatinine Ratio 11 % 01/05/19 09:49 Glucose 83 mg/dL (65-100) 01/05/19 09:49 Calcium 9.2 mg/dL (8.4-10.2) 01/05/19 09:49 Total Bilirubin 0.50 mg/dL (0.1-1.2) 01/02/19 19:09 AST 17 units/L (5-40) 01/02/19 19:09 ALT 8 units/L (7-56) 01/02/19 19:09 Alkaline Phosphatase 67 units/L (35-129) 01/02/19 19:09 Total Creatine Kinase 255 units/L (30-135) H 01/03/19 05:12 CK-MB (CK-2) 1.7 ng/mL (0.0-4.0) 01/03/19 05:12 CK-MB (CK-2) Rel Index 0.6 (0-4) 01/03/19 05:12 Troponin T < 0.010 ng/mL (0.00-0.029) 01/03/19 05:12 Total Protein 7.5 g/dL (6.3-8.2) 01/02/19 19:09 Albumin 3.9 g/dL (3.9-5) 01/02/19 19:09 Albumin/Globulin Ratio 1.1 % 01/02/19 19:09 Vitamin B12 701.3 pg/mL (211-911) 01/05/19 18:28 TSH 1.860 mlU/mL (0.270-4.200) 02/25/19 18:28 Nutrition/Malnutrition Assess - Dietary Evaluation Nutrition/Malnutrition Findings: Nutrition Notes Start: 01/03/19 13:47 Freq: Status: Active Protocol: Document 01/07/19 11:29 ABIGAIL (Rec: 01/07/19 11:51 [email or web address] [email or web address]) Co-Sign 01/07/19 11:29 LP Nutrition Notes Initial or Follow up Reassessment Current Diagnosis Stroke Other Pertinent Diagnosis TIA, Dementia Current Diet Mechanical soft Labs/Tests K: 3.1 Pertinent Medications Reviewed Height 5 ft 4 in Weight 45.1 kg [place] Body Weight (kg) 54.54 BMI 17.0 Weight change and time frame Previous admission wt. = 63.5 kg (05/28/18). Wt loss of 28% of BW in 7 mo. Weight Status Underweight Subjective/Other Information Pt. f/u for ETYMOLOGY TEACHER note, intakes. Pt. has not been assessed by ETYMOLOGY TEACHER yet. Observed nurse feeding pt. at time of visit. Pt. required total assistance. Financial Planning Consultant noticed some food falling out of mouth with each bite. Per RN, pt. cannot consume much of ONS because she cannot suck out of straw. Recommend PEG tube feedings if poor PO intake continues. Percent of energy/protein needs met: <50%/50% Burn Absent Trauma Absent Food Allergy Yes Minimum of two criteria Yes Energy Intake (severe) < or equal to 50% Estimated Energy Requirement > or equal to 5 days Interpretation of Weight Loss (severe) >10% in 6 months #3 Nutrition Diagnosis Malnutrition Etiology TIA, dementia As Evidenced by Signs and Symptoms 28% BW loss in 7 mo., intakes of less than 50% over last 5 days #2 Nutrition Diagnosis Underweight Diagnosis Progress(for reassessment Continues documentation) #1 Nutrition Diagnosis Inadequate oral intake Diagnosis Progress(for reassessment Continues documentation) Is patient on ventilator? No Is Patient Ambulatory and/or Out of Bed No REE-([facility]-confined to bed) 1153.380 Kcal/Kg value to use for calculation 36 Approximate Energy Requirements Using 1624 kcal/Kg Calculation Used for Recommendations Kcal/kg Additional Notes Pro: 54-68g/day (1.2-1.5 g/kg BW) Fluid: 1 ml/kcal Nutrition Intervention Change Diet Order: Continue mechanical soft + Ensure Enlive Add Supplement/Snack (indicate name/kcal Ensure Enlive daily /protein ) Provides kCal: 350 Provides Protein (gm) 20 Goal #1 PO and ONS to meet 75-100% of nutrient needs Goal #2 Wt maintenance and/or gain Anticipated Discharge Needs: Unable to detemrine at this time Follow-Up By: 01/09/19 Additional Comments F/u: ETYMOLOGY TEACHER note, intakes, potential need for TF
--- NOTE | 2019-01-07 23:53 | Progress Note ---
Assessment and Plan Assessment and plan: 68-year-old woman with past medical history of CVA, dementia, chronic left-sided weakness, previous hemorrhagic stroke in the past. The patient was brought in by daughter for altered mental status, which she described as unsteady swaggering gait and falling to her side, with worsening left-sided weakness. Diagnosis Acute CVA has been ruled out Dementia Hypokalemia Altered mental status Acute metabolic and toxic encephalopathy Plan MR neg for acute stroke MR does show chronic hemorrhagic cva she was seen by neurology who agreed with the plan -k was repleted -Her home med list was innacurate at time of admission, she received multiple sedative meds which she does not take at home due to this error including Depakoke, haldol and drew carroll, they have all been dc and home med list was corrected -awaiting for them to wear off and for her Mentation to return to [facility]; home with service when mentation improved History Interval history: Afebrile Patient has been altered and confused, now very somnolent, she is usually restless at [facility] no cough, no vomiting There is no vomiting, no obvious shortness of breath, patient has been confused but has not been violent Hospitalist Physical - Constitutional Vitals: Temp Pulse Resp BP Pulse Ox 98.0 F 115 H 18 123/72 53 L 01/07/19 20:09 01/07/19 20:09 01/07/19 20:09 01/07/19 20:09 01/07/19 20:09 Results - Labs CBC & Chem 7: 01/02/19 19:09 01/05/19 09:49 Labs: Laboratory Last Values WBC 4.9 K/mm3 (4.5-11.0) 01/02/19 19: RBC 4.60 M/mm3 (3.65-5.03) 01/02/19 19: Hgb 12.1 gm/dl (10.1-14.3) 01/02/19 19: Hct 37.3 % (30.3-42.9) 01/02/19 19: MCV 81 fl (79-97) 01/02/19 19: MCH 26 pg (28-32) L 01/02/19 19: MCHC 33 % (30-34) 01/02/19 19:09 RDW 16.0 % (13.2-15.2) H 01/02/19 19:09 Plt Count 175 K/mm3 (140-440) 01/02/19 19:09 Lymph % (Auto) 13.9 % (13.4-35.0) 01/02/19 19:09 [place] % (Auto) 7.4 % (0.0-7.3) H 01/02/19 19:09 Eos % (Auto) 0.3 % (0.0-4.3) 01/02/19 19:09 Baso % (Auto) 0.6 % (0.0-1.8) 01/02/19 19:09 Lymph # 0.7 K/mm3 (1.2-5.4) L 01/02/19 19:09 [place] # 0.4 K/mm3 (0.0-0.8) 01/02/19 19:09 Eos # 0.0 K/mm3 (0.0-0.4) 01/02/19 19:09 Baso # 0.0 K/mm3 (0.0-0.1) 01/02/19 19:09 Seg Neutrophils % 77.8 % (40.0-70.0) H 01/02/19 19:09 Seg Neutrophils # 3.8 K/mm3 (1.8-7.7) 01/02/19 19:09 PT 13.2 Sec. (12.2-14.9) 01/02/19 19:09 INR 0.95 (0.87-1.13) 01/02/19 19:09 APTT 26.3 Sec. (24.2-36.6) 01/02/19 19:09 Thrombin Time 17.3 Sec. (15.1-19.6) 01/02/19 19:09 Sodium 139 mmol/L (137-145) 01/05/19 09:49 Potassium 3.1 mmol/L (3.6-5.0) L 01/05/19 09:49 Chloride 96.2 mmol/L (98-107) L 01/05/19 09:49 Carbon Dioxide 28 mmol/L (22-30) 01/05/19 09:49 Anion Gap 18 mmol/L 01/05/19 09:49 BUN 9 mg/dL (7-17) 01/05/19 09:49 Creatinine 0.8 mg/dL (0.7-1.2) 01/05/19 09:49 Estimated GFR > 60 ml/min 01/05/19 09:49 BUN/Creatinine Ratio 11 % 01/05/19 09:49 Glucose 83 mg/dL (65-100) 01/05/19 09:49 Calcium 9.2 mg/dL (8.4-10.2) 01/05/19 09:49 Total Bilirubin 0.50 mg/dL (0.1-1.2) 01/02/19 19:09 AST 17 units/L (5-40) 01/02/19 19:09 ALT 8 units/L (7-56) 01/02/19 19:09 Alkaline Phosphatase 67 units/L (35-129) 01/02/19 19:09 Total Creatine Kinase 255 units/L (30-135) H 01/03/19 05:12 CK-MB (CK-2) 1.7 ng/mL (0.0-4.0) 01/03/19 05:12 CK-MB (CK-2) Rel Index 0.6 (0-4) 01/03/19 05:12 Troponin T < 0.010 ng/mL (0.00-0.029) 01/03/19 05:12 Total Protein 7.5 g/dL (6.3-8.2) 01/02/19 19:09 Albumin 3.9 g/dL (3.9-5) 01/02/19 19:09 Albumin/Globulin Ratio 1.1 % 01/02/19 19:09 Vitamin B12 701.3 pg/mL (211-911) 01/05/19 18:28 TSH 1.860 mlU/mL (0.270-4.200) 01/05/19 18:28 Nutrition/Malnutrition Assess - Dietary Evaluation Nutrition/Malnutrition Findings: Nutrition Notes Start: 01/03/19 13:47 Freq: Status: Active Protocol: Document 01/07/19 11:29 ABIGAIL (Rec: 01/07/19 11:51 [email or web address] [email or web address]) Co-Sign 01/07/19 11:29 LP Nutrition Notes Initial or Follow up Reassessment Current Diagnosis Stroke Other Pertinent Diagnosis TIA, Dementia Current Diet Mechanical soft Labs/Tests K: 3.1 Pertinent Medications Reviewed Height 5 ft 4 in Weight 45.1 kg [place] Body Weight (kg) 54.54 BMI 17.0 Weight change and time frame Previous admission wt. = 63.5 kg (05/28/18). Wt loss of 28% of BW in 7 mo. Weight Status Underweight Subjective/Other Information Pt. f/u for SUPERVISING FLOORPERSON note, intakes. Pt. has not been assessed by SUPERVISING FLOORPERSON yet. Observed nurse feeding pt. at time of visit. Pt. required total assistance. Insurance Agency Owner noticed some food falling out of mouth with each bite. Per RN, pt. cannot consume much of ONS because she cannot suck out of straw. Recommend PEG tube feedings if poor PO intake continues. Percent of energy/protein needs met: <50%/50% Burn Absent Trauma Absent Food Allergy Yes Minimum of two criteria Yes Energy Intake (severe) < or equal to 50% Estimated Energy Requirement > or equal to 5 days Interpretation of Weight Loss (severe) >10% in 6 months #3 Nutrition Diagnosis Malnutrition Etiology TIA, dementia As Evidenced by Signs and Symptoms 28% BW loss in 7 mo., intakes of less than 50% over last 5 days #2 Nutrition Diagnosis Underweight Diagnosis Progress(for reassessment Continues documentation) #1 Nutrition Diagnosis Inadequate oral intake Diagnosis Progress(for reassessment Continues documentation) Is patient on ventilator? No Is Patient Ambulatory and/or Out of Bed No REE-([facility]-confined to bed) 1153.380 Kcal/Kg value to use for calculation 36 Approximate Energy Requirements Using 1624 kcal/Kg Calculation Used for Recommendations Kcal/kg Additional Notes Pro: 54-68g/day (1.2-1.5 g/kg BW) Fluid: 1 ml/kcal Nutrition Intervention Change Diet Order: Continue mechanical soft + Ensure Enlive Add Supplement/Snack (indicate name/kcal Ensure Enlive daily /protein ) Provides kCal: 350 Provides Protein (gm) 20 Goal #1 PO and ONS to meet 75-100% of nutrient needs Goal #2 Wt maintenance and/or gain Anticipated Discharge Needs: Unable to detemrine at this time Follow-Up By: 01/09/19 Additional Comments F/u: SUPERVISING FLOORPERSON note, intakes, potential need for TF
[2019-01-08] MEDS: BENADRYL PO SCH (00:04)
[2019-01-08] MEDS: DESYREL PO SCH ×2 (00:05→21:09)
[2019-01-08] MEDS: NAMENDA PO SCH ×3 (00:05→21:09)
[2019-01-08] MEDS: NACL 0.45% 1000 ML 1,000 ML IV SCH (00:59)
[2019-01-08 06:00] LABS: BUN/Creatinine Ratio 25; Blood Urea Nitrogen 20 mg/dL (7-17); Calcium 9.4 mg/dL (8.4-10.2); Hemolysis Index 22
[2019-01-08] MEDS: COGENTIN PO SCH (09:09)
[2019-01-08] MEDS: PLAVIX PO SCH (09:09)
[2019-01-08] MEDS: NORVASC PO SCH (09:10)
[2019-01-08] MEDS: K-DUR PO SCH (13:21)
[2019-01-09] MEDS: NACL 0.45% 1000 ML 1,000 ML IV SCH ×2 (03:21→21:46)
[2019-01-09] MEDS: PLAVIX PO SCH (09:20)
[2019-01-09] MEDS: K-DUR PO SCH (09:20)
[2019-01-09] MEDS: NORVASC PO SCH (09:21)
[2019-01-09] MEDS: NAMENDA PO SCH ×2 (09:26→21:48)
[2019-01-09] MEDS: COGENTIN PO SCH (09:27)
--- NOTE | 2019-01-09 12:04 | Progress Note ---
Assessment and Plan Assessment and plan: Assessment and plan. Acute hypokalemia. replete and recheck in am Generalized weakness fall precautions at all times Aspiration precautions at all times PT/OT. Dementia with delirium, cause of pt's Encephalopathy. fall and aspiration precautions at all times d/c planning once more stable enough. HTN, essen, chronic. Continue Amlodipine. Fall and Aspiration risk. PT eval and recc. Fall precautions at all times Adult FTT nutrition on board. Malnutrition. nutrition on board. Full code status. Further pt mgt per hospital course Dispo: discharge once medically stable. Disposition Plan: PT eval and reccs, discharge once medically stable. Total Time Spent with Patient (Minutes): 30 mins History Interval history: HPI: This is a 68-year-old female. The patient has a past medical history of stroke, dementia. History obtained from her daughter, Mrs. Deanna Velazquez; [phone] Patient is brought to the hospital by EMS for possible stroke and altered mental status. Last known well time was 6:00 PM last night. As per the daughter, patient has been walking with an unsteady gait, swinging and falling to the side, may have had a left-sided facial droop, and perhaps at one point had left arm weakness. These symptoms appear to have resolved. Brief Hospital course: 68-year-old woman with past medical history of CVA, dementia, chronic left- sided weakness, previous hemorrhagic stroke in the past. The patient was brought in by daughter for altered mental status, which she described as unsteady swaggering gait and falling to her side, with worsening left-sided weakness. Patient has been ruled out for acute CVA. Pt is still weak, poor oral intake, with decreased mental status. Not anymore somnolent. Patient is not ready for discharge today. No family by bedside during this encounter. Subjective: No new complaints today. Remains very weak. Hospitalist Physical - Constitutional Vitals: Temp Pulse Resp BP Pulse Ox 98.0 F 76 20 137/65 100 01/09/19 07:48 01/09/19 10:00 01/09/19 10:00 01/09/19 09:21 01/09/19 10:00 General appearance: Present: no acute distress, other (elderly female, poor verbal communication. ) - EENT Eyes: Present: PERRL, EOM intact ENT: clear oral mucosa, other (hard of hearing.) - Neck Neck: Present: supple, normal ROM - Respiratory Respiratory: bilateral: CTA, negative: rales, rhonchi, wheezing - Cardiovascular Rhythm: regular Heart Sounds: Present: S1 & S2 - Extremities Extremities: no ischemia, pulses intact, No edema, normal temperature Peripheral Pulses: within normal limits - Abdominal General gastrointestinal: soft, non-tender, non-distended, normal bowel sounds - Integumentary Integumentary: Present: clear, warm, dry - Psychiatric Psychiatric: appropriate mood/affect, cooperative, other (demented. ) - Neurologic Neurologic: moves all extremities (gait not assessed. ) - Allied Health Allied health notes reviewed: nursing, social work, case management Results - Labs CBC & Chem 7: 01/02/19 19:09 01/08/19 05:08 Labs: Laboratory Last Values WBC 4.9 K/mm3 (4.5-11.0) 01/02/19 19:09 RBC 4.60 M/mm3 (3.65-5.03) 01/02/19 19:09 Hgb 12.1 gm/dl (10.1-14.3) 01/02/19 19:09 Hct 37.3 % (30.3-42.9) 01/02/19 19:09 MCV 81 fl (79-97) 01/02/19 19:09 MCH 26 pg (28-32) L 01/02/19 19:09 MCHC 33 % (30-34) 01/02/19 19:09 RDW 16.0 % (13.2-15.2) H 01/02/19 19:09 Plt Count 175 K/mm3 (140-440) 01/02/19 19:09 Lymph % (Auto) 13.9 % (13.4-35.0) 01/02/19 19:09 [place] % (Auto) 7.4 % (0.0-7.3) H 01/02/19 19:09 Eos % (Auto) 0.3 % (0.0-4.3) 01/02/19 19:09 Baso % (Auto) 0.6 % (0.0-1.8) 01/02/19 19:09 Lymph # 0.7 K/mm3 (1.2-5.4) L 01/02/19 19:09 [place] # 0.4 K/mm3 (0.0-0.8) 01/02/19 19:09 Eos # 0.0 K/mm3 (0.0-0.4) 01/02/19 19:09 Baso # 0.0 K/mm3 (0.0-0.1) 01/02/19 19:09 Seg Neutrophils % 77.8 % (40.0-70.0) H 01/02/19 19:09 Seg Neutrophils # 3.8 K/mm3 (1.8-7.7) 01/02/19 19:09 PT 13.2 Sec. (12.2-14.9) 01/02/19 19:09 INR 0.95 (0.87-1.13) 01/02/19 19:09 APTT 26.3 Sec. (24.2-36.6) 01/02/19 19:09 Thrombin Time 17.3 Sec. (15.1-19.6) 01/02/19 19:09 Sodium 143 mmol/L (137-145) 01/08/19 05:08 Potassium 3.2 mmol/L (3.6-5.0) L 01/08/19 05:08 Chloride 98.8 mmol/L (98-107) 01/08/19 05:08 Carbon Dioxide 31 mmol/L (22-30) H 01/08/19 05:08 Anion Gap 16 mmol/L 01/08/19 05:08 BUN 20 mg/dL (7-17) H 01/08/19 05:08 Creatinine 0.8 mg/dL (0.7-1.2) 01/08/19 05:08 Estimated GFR > 60 ml/min 01/08/19 05:08 BUN/Creatinine Ratio 25 % 01/08/19 05:08 Glucose 102 mg/dL (65-100) H 01/08/19 05:08 Calcium 9.4 mg/dL (8.4-10.2) 01/08/19 05:08 Total Bilirubin 0.50 mg/dL (0.1-1.2) 01/02/19 19:09 AST 17 units/L (5-40) 01/02/19 19:09 ALT 8 units/L (7-56) 01/02/19 19:09 Alkaline Phosphatase 67 units/L (35-129) 01/02/19 19:09 Total Creatine Kinase 255 units/L (30-135) H 01/03/19 05:12 CK-MB (CK-2) 1.7 ng/mL (0.0-4.0) 01/03/19 05:12 CK-MB (CK-2) Rel Index 0.6 (0-4) 01/03/19 05:12 Troponin T < 0.010 ng/mL (0.00-0.029) 01/03/19 05:12 Total Protein 7.5 g/dL (6.3-8.2) 01/02/19 19:09 Albumin 3.9 g/dL (3.9-5) 01/02/19 19:09 Albumin/Globulin Ratio 1.1 % 01/02/19 19:09 Vitamin B12 701.3 pg/mL (211-911) 01/05/19 18:28 TSH 1.860 mlU/mL (0.270-4.200) 01/05/19 18:28 - Imaging and Cardiology Chest x-ray: report reviewed CT Scan - head: report reviewed MRI - head: report reviewed Nutrition/Malnutrition Assess - Dietary Evaluation Nutrition/Malnutrition Findings: Nutrition Notes Start: 01/03/19 13:47 Freq: Status: Active Protocol: Document 01/07/19 11:29 (Rec: 01/07/19 11:51 [email or web address]) Co-Sign 01/07/19 11:29 LP Nutrition Notes Initial or Follow up Reassessment Current Diagnosis Stroke Other Pertinent Diagnosis TIA, Dementia Current Diet Mechanical soft Labs/Tests K: 3.1 Pertinent Medications Reviewed Height 5 ft 4 in Weight 45.1 kg [place] Body Weight (kg) 54.54 BMI 17.0 Weight change and time frame Previous admission wt. = 63.5 kg (05/28/18). Wt loss of 28% of BW in 7 mo. Weight Status Underweight Subjective/Other Information Pt. f/u for MAIN GALLEY SCULLION note, intakes. Pt. has not been assessed by MAIN GALLEY SCULLION yet. Observed nurse feeding pt. at time of visit. Pt. required total assistance. Cigarette Examiner noticed some food falling out of mouth with each bite. Per RN, pt. cannot consume much of ONS because she cannot suck out of straw. Recommend PEG tube feedings if poor PO intake continues. Percent of energy/protein needs met: <50%/50% Burn Absent Trauma Absent Food Allergy Yes Minimum of two criteria Yes Energy Intake (severe) < or equal to 50% Estimated Energy Requirement > or equal to 5 days Interpretation of Weight Loss (severe) >10% in 6 months #3 Nutrition Diagnosis Malnutrition Etiology TIA, dementia As Evidenced by Signs and Symptoms 28% BW loss in 7 mo., intakes of less than 50% over last 5 days #2 Nutrition Diagnosis Underweight Diagnosis Progress(for reassessment Continues documentation) #1 Nutrition Diagnosis Inadequate oral intake Diagnosis Progress(for reassessment Continues documentation) Is patient on ventilator? No Is Patient Ambulatory and/or Out of Bed No REE-([facility]-confined to bed) 1153.380 Kcal/Kg value to use for calculation 36 Approximate Energy Requirements Using 1624 kcal/Kg Calculation Used for Recommendations Kcal/kg Additional Notes Pro: 54-68g/day (1.2-1.5 g/kg BW) Fluid: 1 ml/kcal Nutrition Intervention Change Diet Order: Continue mechanical soft + Ensure Enlive Add Supplement/Snack (indicate name/kcal Ensure Enlive daily /protein ) Provides kCal: 350 Provides Protein (gm) 20 Goal #1 PO and ONS to meet 75-100% of nutrient needs Goal #2 Wt maintenance and/or gain Anticipated Discharge Needs: Unable to detemrine at this time Follow-Up By: 01/09/19 Additional Comments F/u: MAIN GALLEY SCULLION note, intakes, potential need for TF - Attestation Statement I have reviewed and agreed w/ Malnutrition eval & tx plan: Yes
[2019-01-09] MEDS ORDERED: K-DUR PO ONE (14:00)
[2019-01-09] MEDS: DESYREL PO SCH (21:48)
[2019-01-10 01:22] LABS: BUN/Creatinine Ratio 18; Blood Urea Nitrogen 11 mg/dL (7-17); Calcium 9.7 mg/dL (8.4-10.2); Hemolysis Index 4
[2019-01-10] MEDS: PLAVIX PO SCH (09:41)
[2019-01-10] MEDS: NORVASC PO SCH (09:41)
[2019-01-10] MEDS: NAMENDA PO SCH ×2 (09:42→22:26)
[2019-01-10] MEDS: COGENTIN PO SCH (09:42)
[2019-01-10] MEDS: K-DUR PO SCH (09:48)
--- NOTE | 2019-01-10 14:24 | Progress Note ---
Assessment and Plan Assessment and plan: Acute hypokalemia. -on repletion, will monitor Generalized weakness fall precautions at all times PT/OT. Dementia with delirium -will monitor clinically -will do ua HTN, essential -controlled -Continue Amlodipine. TIA, acute stroke ruled out -MRI brain neg -carotid doppler neg for stenosis Adult FTT gelatin maker utility on board. Disp: for d/c when mental status improves History Interval history: Pt is unable to communicate appropriately. No overnight issues reported Hospitalist Physical - Constitutional Vitals: Temp Pulse Resp BP Pulse Ox 98.0 F 77 20 143/74 99 01/10/19 07:26 01/10/19 10:00 01/10/19 07:26 01/10/19 09:41 01/10/19 07:26 General appearance: Present: no acute distress - EENT Eyes: Present: PERRL, EOM intact ENT: hearing intact, clear oral mucosa - Neck Neck: Present: supple - Respiratory Respiratory effort: normal Respiratory: bilateral: CTA - Cardiovascular Rhythm: regular Heart Sounds: Present: S1 & S2 - Extremities Extremities: No edema - Abdominal General gastrointestinal: soft, tender (epigastric), non-distended, normal bowel sounds - Neurologic Neurologic: moves all extremities Results - Labs CBC & Chem 7: 01/02/19 19:09 01/10/19 00:16 Labs: Laboratory Last Values WBC 4.9 K/mm3 (4.5-11.0) 01/02/19 19:09 RBC 4.60 M/mm3 (3.65-5.03) 01/02/19 19:09 Hgb 12.1 gm/dl (10.1-14.3) 01/02/19 19:09 Hct 37.3 % (30.3-42.9) 01/02/19 19:09 MCV 81 fl (79-97) 01/02/19 19:09 MCH 26 pg (28-32) L 01/02/19 19:09 MCHC 33 % (30-34) 01/02/19 19:09 RDW 16.0 % (13.2-15.2) H 01/02/19 19:09 Plt Count 175 K/mm3 (140-440) 01/02/19 19:09 Lymph % (Auto) 13.9 % (13.4-35.0) 01/02/19 19:09 [place] % (Auto) 7.4 % (0.0-7.3) H 01/02/19 19:09 Eos % (Auto) 0.3 % (0.0-4.3) 01/02/19 19:09 Baso % (Auto) 0.6 % (0.0-1.8) 01/02/19 19:09 Lymph # 0.7 K/mm3 (1.2-5.4) L 01/02/19 19:09 [place] # 0.4 K/mm3 (0.0-0.8) 01/02/19 19:09 Eos # 0.0 K/mm3 (0.0-0.4) 01/02/19 19:09 Baso # 0.0 K/mm3 (0.0-0.1) 01/02/19 19:09 Seg Neutrophils % 77.8 % (40.0-70.0) H 01/02/19 19:09 Seg Neutrophils # 3.8 K/mm3 (1.8-7.7) 01/02/19 19:09 PT 13.2 Sec. (12.2-14.9) 01/02/19 19:09 INR 0.95 (0.87-1.13) 01/02/19 19:09 APTT 26.3 Sec. (24.2-36.6) 01/02/19 19:09 Thrombin Time 17.3 Sec. (15.1-19.6) 01/02/19 19:09 Sodium 139 mmol/L (137-145) 01/10/19 00:16 Potassium 3.6 mmol/L (3.6-5.0) 01/10/19 00:16 Chloride 97.4 mmol/L (98-107) L 01/10/19 00:16 Carbon Dioxide 30 mmol/L (22-30) 01/10/19 00:16 Anion Gap 15 mmol/L 01/10/19 00:16 BUN 11 mg/dL (7-17) 01/10/19 00:16 Creatinine 0.6 mg/dL (0.7-1.2) L 01/10/19 00:16 Estimated GFR > 60 ml/min 01/10/19 00:16 BUN/Creatinine Ratio 18 % 01/10/19 00:16 Glucose 117 mg/dL (65-100) H 01/10/19 00:16 Calcium 9.7 mg/dL (8.4-10.2) 01/10/19 00:16 Total Bilirubin 0.50 mg/dL (0.1-1.2) 01/02/19 19:09 AST 17 units/L (5-40) 01/02/19 19:09 ALT 8 units/L (7-56) 01/02/19 19:09 Alkaline Phosphatase 67 units/L (35-129) 01/02/19 19:09 Total Creatine Kinase 255 units/L (30-135) H 01/03/19 05:12 CK-MB (CK-2) 1.7 ng/mL (0.0-4.0) 01/03/19 05:12 CK-MB (CK-2) Rel Index 0.6 (0-4) 01/03/19 05:12 Troponin T < 0.010 ng/mL (0.00-0.029) 01/03/19 05:12 Total Protein 7.5 g/dL (6.3-8.2) 01/02/19 19:09 Albumin 3.9 g/dL (3.9-5) 01/02/19 19:09 Albumin/Globulin Ratio 1.1 % 01/02/19 19:09 Vitamin B12 701.3 pg/mL (211-911) 01/05/19 18:28 RBC Folic Acid 618 ng/mL (>280) 01/05/19 18:28 TSH 1.860 mlU/mL (0.270-4.200) 01/05/19 18:28 Nutrition/Malnutrition Assess - Dietary Evaluation Nutrition/Malnutrition Findings: Nutrition Notes Start: 01/03/19 13:47 Freq: Status: Active Protocol: Document 01/09/19 14:08 SA (Rec: 01/09/19 14:18 SA [id number]) Co-Sign 01/09/19 14:08 LP Nutrition Notes Initial or Follow up Reassessment Current Diagnosis Stroke Other Pertinent Diagnosis TIA, Dementia Current Diet Mechanical soft Labs/Tests K:3.2 BUN: 31 Cr: 20 Glu: 102 Pertinent Medications Reviewed Height 5 ft 4 in Weight 43.7 kg [place] Body Weight (kg) 54.54 BMI 16.5 Subjective/Other Information Patient unable to talk at time of visit (confused). Per RN, patient eating 50% of meals and drinking 100% of ONS. RN states no chewing/swallowing difficulty and N/V/D. Percent of energy/protein needs met: 90%/100% Burn Absent Trauma Absent Food Allergy Yes #3 Nutrition Diagnosis Malnutrition Diagnosis Progress(for reassessment Continues documentation) #2 Nutrition Diagnosis Underweight Diagnosis Progress(for reassessment Continues documentation) #1 Nutrition Diagnosis Inadequate oral intake As Evidenced by Signs and Symptoms pt meeting 90% of kcal needs and 100% pro needs Diagnosis Progress(for reassessment Improved documentation) Is patient on ventilator? No Is Patient Ambulatory and/or Out of Bed No REE-([facility]-confined to bed) 1136.592 Kcal/Kg value to use for calculation 36 Approximate Energy Requirements Using 1573 kcal/Kg Calculation Used for Recommendations Kcal/kg Additional Notes Pro: 52-66 g/day (1.2-1.5 g/kg BW) Fluid: 1 ml/kcal Nutrition Intervention Change Diet Order: Continue mechanical soft + Ensure Enlive Add Supplement/Snack (indicate name/kcal Ensure Enlive BID /protein ) Provides kCal: 700 Provides Protein (gm) 40 Goal #1 Continue to meet 75-100% of kcal and protein nutrient needs Goal #2 Wt maintenance and/or gain Anticipated Discharge Needs: Unable to detemrine at this time Follow-Up By: 01/13/19 Additional Comments F/U: PO and ONS intakes
[2019-01-10] MEDS: PROTONIX PO SCH (15:43)
[2019-01-10] MEDS: DESYREL PO SCH (22:27)
[2019-01-11 08:35] LABS: BUN/Creatinine Ratio 18; Blood Urea Nitrogen 9 mg/dL (7-17); Calcium 9.7 mg/dL (8.4-10.2); Hemolysis Index 6
[2019-01-11] MEDS: PLAVIX PO SCH (10:16)
[2019-01-11] MEDS: COGENTIN PO SCH (10:17)
[2019-01-11] MEDS: NORVASC PO SCH (10:17)
[2019-01-11] MEDS: PROTONIX PO SCH (10:17)
[2019-01-11] MEDS: K-DUR PO SCH (10:17)
[2019-01-11] MEDS: NAMENDA PO SCH ×2 (10:18→22:44)
[2019-01-11 12:28] LABS: Bilirubin,Urine NEG (Negative); Blood,Urine NEG (Negative); Color,Urine Yellow (Yellow); Mucus,Urine 1+ /HPF; Protein,Urine <15 mg/dL mg/dL (Negative)
--- NOTE | 2019-01-11 14:23 | Progress Note ---
Assessment and Plan Assessment and plan: UTI -IV Rocephin started -urine culture pending Acute hypokalemia. -resolved s/p repletion Generalized weakness fall precautions at all times PT/OT following Dementia with acute delirium -probably 2/2 to UTI -will monitor clinically -CT head/MRI barin neg HTN, essential -controlled -Continue Amlodipine. 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 Disp: for d/c when mental status improves History Interval history: pt is able to verbalize better today. she reports feeling ok Hospitalist Physical - Constitutional Vitals: Temp Pulse Resp BP Pulse Ox 97.8 F 66 16 134/70 100 01/11/19 07:09 01/11/19 10:17 01/11/19 07:09 01/11/19 10:17 01/11/19 07:09 General appearance: Present: no acute distress - EENT Eyes: Present: PERRL, EOM intact ENT: hearing intact, clear oral mucosa - Neck Neck: Present: supple - Respiratory Respiratory effort: normal Respiratory: bilateral: CTA - Cardiovascular Rhythm: regular Heart Sounds: Present: S1 & S2 - Extremities Extremities: No edema - Abdominal General gastrointestinal: soft, tender (epigastric), non-distended, normal bowel sounds - Neurologic Neurologic: other (generalized weakness) Results - Labs CBC & Chem 7: 01/02/19 19:09 01/11/19 07:45 Labs: Laboratory Last Values WBC 4.9 K/mm3 (4.5-11.0) 01/02/19 19: RBC 4.60 M/mm3 (3.65-5.03) 01/02/19 19:09 Hgb 12.1 gm/dl (10.1-14.3) 01/02/19 19:09 Hct 37.3 % (30.3-42.9) 01/02/19 19:09 MCV 81 fl (79-97) 01/02/19 19:09 MCH 26 pg (28-32) L 01/02/19 19:09 MCHC 33 % (30-34) 01/02/19 19:09 RDW 16.0 % (13.2-15.2) H 01/02/19 19:09 Plt Count 175 K/mm3 (140-440) 01/02/19 19:09 Lymph % (Auto) 13.9 % (13.4-35.0) 01/02/19 19:09 [place] % (Auto) 7.4 % (0.0-7.3) H 01/02/19 19:09 Eos % (Auto) 0.3 % (0.0-4.3) 01/02/19 19:09 Baso % (Auto) 0.6 % (0.0-1.8) 01/02/19 19:09 Lymph # 0.7 K/mm3 (1.2-5.4) L 01/02/19 19:09 [place] # 0.4 K/mm3 (0.0-0.8) 01/02/19 19:09 Eos # 0.0 K/mm3 (0.0-0.4) 01/02/19 19:09 Baso # 0.0 K/mm3 (0.0-0.1) 01/02/19 19:09 Seg Neutrophils % 77.8 % (40.0-70.0) H 01/02/19 19:09 Seg Neutrophils # 3.8 K/mm3 (1.8-7.7) 01/02/19 19:09 PT 13.2 Sec. (12.2-14.9) 01/02/19 19:09 INR 0.95 (0.87-1.13) 01/02/19 19:09 APTT 26.3 Sec. (24.2-36.6) 01/02/19 19:09 Thrombin Time 17.3 Sec. (15.1-19.6) 01/02/19 19:09 Sodium 137 mmol/L (137-145) 01/11/19 07:45 Potassium 3.7 mmol/L (3.6-5.0) 01/11/19 07:45 Chloride 96.9 mmol/L (98-107) L 01/11/19 07:45 Carbon Dioxide 28 mmol/L (22-30) 01/11/19 07:45 Anion Gap 16 mmol/L 01/11/19 07:45 BUN 9 mg/dL (7-17) 01/11/19 07:45 Creatinine 0.5 mg/dL (0.7-1.2) L 01/11/19 07:45 Estimated GFR > 60 ml/min 01/11/19 07:45 BUN/Creatinine Ratio 18 % 01/11/19 07:45 Glucose 91 mg/dL (65-100) 01/11/19 07:45 Calcium 9.7 mg/dL (8.4-10.2) 01/11/19 07:45 Magnesium 1.80 mg/dL (1.7-2.3) 01/11/19 07:45 Total Bilirubin 0.50 mg/dL (0.1-1.2) 01/02/19 19:09 AST 17 units/L (5-40) 01/02/19 19:09 ALT 8 units/L (7-56) 01/02/19 19:09 Alkaline Phosphatase 67 units/L (35-129) 01/02/19 19:09 Total Creatine Kinase 255 units/L (30-135) H 01/03/19 05:12 CK-MB (CK-2) 1.7 ng/mL (0.0-4.0) 01/03/19 05:12 CK-MB (CK-2) Rel Index 0.6 (0-4) 01/03/19 05:12 Troponin T < 0.010 ng/mL (0.00-0.029) 01/03/19 05:12 Total Protein 7.5 g/dL (6.3-8.2) 01/02/19 19:09 Albumin 3.9 g/dL (3.9-5) 01/02/19 19:09 Albumin/Globulin Ratio 1.1 % 01/02/19 19:09 Vitamin B12 701.3 pg/mL (211-911) 01/05/19 18:28 RBC Folic Acid 618 ng/mL (>280) 01/05/19 18:28 TSH 1.860 mlU/mL (0.270-4.200) 01/05/19 18:28 Urine Color Yellow (Yellow) 01/11/19 Unknown Urine Turbidity Slightly-cloudy (Clear) 01/11/19 Unknown Urine pH 7.0 (5.0-7.0) 01/11/19 Unknown Ur Specific [place] 1.015 (1.003-1.030) 01/11/19 Unknown Urine Protein <15 mg/dl mg/dL (Negative) 01/11/19 Unknown Urine Glucose (UA) Neg mg/dL (Negative) 01/11/19 Unknown Urine Ketones Neg mg/dL (Negative) 01/11/19 Unknown Urine Blood Neg (Negative) 01/11/19 Unknown Urine Nitrite Neg (Negative) 01/11/19 Unknown Urine Bilirubin Neg (Negative) 01/11/19 Unknown Urine Urobilinogen 2.0 mg/dL (<2.0) 01/11/19 Unknown Ur Leukocyte Esterase Tr (Negative) 01/11/19 Unknown Urine WBC (Auto) 10.0 /HPF (0.0-6.0) H 01/11/19 Unknown Urine RBC (Auto) 3.0 /HPF (0.0-6.0) 01/11/19 Unknown U Epithel Cells (Auto) 16.0 /HPF (0-13.0) H 01/11/19 Unknown Urine Mucus 1+ /HPF 01/11/19 Unknown Nutrition/Malnutrition Assess - Dietary Evaluation Nutrition/Malnutrition Findings: Nutrition Notes Start: 01/03/19 13:47 Freq: Status: Active Protocol: Document 01/09/19 14:08 SA (Rec: 01/09/19 14:18 SA [id number]) Co-Sign 01/09/19 14:08 LP Nutrition Notes Initial or Follow up Reassessment Current Diagnosis Stroke Other Pertinent Diagnosis TIA, Dementia Current Diet Mechanical soft Labs/Tests K:3.2 BUN: 31 Cr: 20 Glu: 102 Pertinent Medications Reviewed Height 5 ft 4 in Weight 43.7 kg [place] Body Weight (kg) 54.54 BMI 16.5 Subjective/Other Information Patient unable to talk at time of visit (confused). Per RN, patient eating 50% of meals and drinking 100% of ONS. RN states no chewing/swallowing difficulty and N/V/D. Percent of energy/protein needs met: 90%/100% Burn Absent Trauma Absent Food Allergy Yes #3 Nutrition Diagnosis Malnutrition Diagnosis Progress(for reassessment Continues documentation) #2 Nutrition Diagnosis Underweight Diagnosis Progress(for reassessment Continues documentation) #1 Nutrition Diagnosis Inadequate oral intake As Evidenced by Signs and Symptoms pt meeting 90% of kcal needs and 100% pro needs Diagnosis Progress(for reassessment Improved documentation) Is patient on ventilator? No Is Patient Ambulatory and/or Out of Bed No REE-([facility]-confined to bed) 1136.592 Kcal/Kg value to use for calculation 36 Approximate Energy Requirements Using 1573 kcal/Kg Calculation Used for Recommendations Kcal/kg Additional Notes Pro: 52-66 g/day (1.2-1.5 g/kg BW) Fluid: 1 ml/kcal Nutrition Intervention Change Diet Order: Continue mechanical soft + Ensure Enlive Add Supplement/Snack (indicate name/kcal Ensure Enlive BID /protein ) Provides kCal: 700 Provides Protein (gm) 40 Goal #1 Continue to meet 75-100% of kcal and protein nutrient needs Goal #2 Wt maintenance and/or gain Anticipated Discharge Needs: Unable to detemrine at this time Follow-Up By: 01/13/19 Additional Comments F/U: PO and ONS intakes
[2019-01-11] MEDS: ROCEPHIN/NS 1 GM/50 ML 1 GM/50 ML BAG IV SCH (16:19)
[2019-01-11] MEDS: DESYREL PO SCH (22:44)
[2019-01-12 08:44] LABS: Hematocrit 34.2 % (30.3-42.9); Hemoglobin 11.6 gm/dl (10.1-14.3); Mean Corpuscular HGB Conc 34 % (30-34); Mean Corpuscular Volume 79 fl (79-97); Red Blood Count 4.32 M/mm3 (3.65-5.03); Red Cell Distribution Width 15.1 % (13.2-15.2)
[2019-01-12] MEDS: K-DUR PO SCH (08:59)
[2019-01-12] MEDS: ROCEPHIN/NS 1 GM/50 ML 1 GM/50 ML BAG IV SCH (08:59)
[2019-01-12] MEDS: PLAVIX PO SCH (08:59)
[2019-01-12] MEDS: NORVASC PO SCH (08:59)
[2019-01-12] MEDS: PROTONIX PO SCH (08:59)
[2019-01-12] MEDS: COGENTIN PO SCH (09:00)
[2019-01-12] MEDS: NAMENDA PO SCH ×2 (09:00→22:03)
[2019-01-12 11:33] LABS: Total Cells Counted 100
[2019-01-12 11:34] LABS: Platelet Estimate Consistent w Auto; RBC Morphology Normal
[2019-01-12 14:11] LABS: Platelet Count 194 K/mm3 (140-440)
--- NOTE | 2019-01-12 16:31 | Progress Note ---
Assessment and Plan Assessment and plan: 68-year-old woman with past medical history of CVA, dementia, chronic left-sided weakness, previous hemorrhagic stroke in the past. The patient was brought in by daughter for altered mental status, which she described as unsteady swaggering gait and falling to her side, with worsening left-sided weakness. Diagnosis Acute CVA has been ruled out Dementia Hypokalemia Altered mental status Acute metabolic and toxic encephalopathy Plan MR neg for acute stroke MR does show chronic hemorrhagic cva she was seen by neurology who agreed with the plan -k was repleted -Her home med list was innacurate at time of admission, she received multiple sedative meds which she does not take at home due to this error including Depakoke, haldol and drew carroll, they have all been dc and home med list was corrected UTI -IV Rocephin started -urine culture pending-no growth Acute hypokalemia. -resolved s/p repletion Generalized weakness fall precautions at all times PT/OT following Dementia with acute delirium -probably 2/2 to UTI -will monitor clinically -CT head/MRI barin neg HTN, essential -controlled -Continue Amlodipine. 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 Disp: for d/c when mental status improves Awaiting placement History Interval history: Patient seen and examined, still confused, but per the discussion with family. Mental status appears to be baseline Hospitalist Physical - Physical exam Narrative exam: General.: Appears well, no distress, nontoxic HEENT: Moist mucous membranes, extraocular muscles intact, no lymphadenopathy Neck: supple Cardiac: S1-S2 heard Lungs: clear to auscultation bilaterally Abdomen: soft, nontender, nondistended, bowel sounds positive Extremities: no edema clubbing or cyanosis Skin: no rash or lesions Neurologic: Patient is confused, no focal weakness, Psych: Patient is confused - Constitutional Vitals: Temp Pulse Resp BP Pulse Ox 97.6 F 79 18 140/76 94 01/12/19 13:30 01/12/19 13:30 01/12/19 13:30 01/12/19 13:30 01/12/19 13:30 General appearance: Present: no acute distress Results - Labs CBC & Chem 7: 01/12/19 07:58 01/11/19 07:45 Labs: Laboratory Last Values WBC 9.3 K/mm3 (4.5-11.0) 01/12/19 07:58 RBC 4.32 M/mm3 (3.65-5.03) 01/12/19 07:58 Hgb 11.6 gm/dl (10.1-14.3) 01/12/19 07:58 Hct 34.2 % (30.3-42.9) 01/12/19 07:58 MCV 79 fl (79-97) 01/12/19 07:58 MCH 27 pg (28-32) L 01/12/19 07:58 MCHC 34 % (30-34) 01/12/19 07:58 RDW 15.1 % (13.2-15.2) 01/12/19 07:58 Plt Count 194 K/mm3 (140-440) 01/12/19 07:58 Lymph % (Auto) 13.9 % (13.4-35.0) 01/02/19 19:09 [place] % (Auto) 7.4 % (0.0-7.3) H 01/02/19 19:09 Eos % (Auto) 0.3 % (0.0-4.3) 01/02/19 19:09 Baso % (Auto) 0.6 % (0.0-1.8) 01/02/19 19:09 Lymph # 0.7 K/mm3 (1.2-5.4) L 01/02/19 19:09 [place] # 0.4 K/mm3 (0.0-0.8) 01/02/19 19:09 Eos # 0.0 K/mm3 (0.0-0.4) 01/02/19 19:09 Baso # 0.0 K/mm3 (0.0-0.1) 01/02/19 19:09 Add Manual Diff Complete 01/12/19 07:58 Total Counted 100 01/12/19 07:58 Seg Neutrophils % 77.8 % (40.0-70.0) H 01/02/19 19:09 Seg Neuts % (Manual) 64.0 % (40.0-70.0) 01/12/19 07:58 Band Neutrophils % 0 % 01/12/19 07:58 Lymphocytes % (Manual) 25.0 % (13.4-35.0) 01/12/19 07:58 Reactive Lymphs % (Man) 0 % 01/12/19 07:58 Monocytes % (Manual) 9.0 % (0.0-7.3) H 01/12/19 07:58 Eosinophils % (Manual) 1.0 % (0.0-4.3) 01/12/19 07:58 Basophils % (Manual) 1.0 % (0.0-1.8) 01/12/19 07:58 Metamyelocytes % 0 % 01/12/19 07:58 Myelocytes % 0 % 01/12/19 07:58 Promyelocytes % 0 % 01/12/19 07:58 Blast Cells % 0 % 01/12/19 07:58 Nucleated RBC % Not Reportable 01/12/19 07:58 Seg Neutrophils # 3.8 K/mm3 (1.8-7.7) 01/02/19 19:09 Seg Neutrophils # Man 6.0 K/mm3 (1.8-7.7) 01/12/19 07:58 Band Neutrophils # 0.0 K/mm3 01/12/19 07:58 Lymphocytes # (Manual) 2.3 K/mm3 (1.2-5.4) 01/12/19 07:58 Abs React Lymphs (Man) 0.0 K/mm3 01/12/19 07:58 Monocytes # (Manual) 0.8 K/mm3 (0.0-0.8) 01/12/19 07:58 Eosinophils # (Manual) 0.1 K/mm3 (0.0-0.4) 01/12/19 07:58 Basophils # (Manual) 0.1 K/mm3 (0.0-0.1) 01/12/19 07:58 Metamyelocytes # 0.0 K/mm3 01/12/19 07:58 Myelocytes # 0.0 K/mm3 01/12/19 07:58 Promyelocytes # 0.0 K/mm3 01/12/19 07:58 Blast Cells # 0.0 K/mm3 01/12/19 07:58 WBC Morphology Not Reportable 01/12/19 07:58 Hypersegmented Neuts Not Reportable 01/12/19 07:58 Hyposegmented Neuts Not Reportable 01/12/19 07:58 Hypogranular Neuts Not Reportable 01/12/19 07:58 Smudge Cells Not Reportable 01/12/19 07:58 Toxic Granulation Not Reportable 01/12/19 07:58 Toxic Vacuolation Not Reportable 01/12/19 07:58 Dohle Bodies Not Reportable 01/12/19 07:58 Pelger-Huet Anomaly Not Reportable 01/12/19 07:58 [place] Rods Not Reportable 01/12/19 07:58 Platelet Estimate Consistent w auto 01/12/19 07:58 Clumped Platelets Not Reportable 01/12/19 07:58 Plt Clumps, EDTA Not Reportable 01/12/19 07:58 Large Platelets Not Reportable 01/12/19 07:58 Giant Platelets Not Reportable 01/12/19 07:58 Platelet Satelliting Not Reportable 01/12/19 07:58 Plt Morphology Comment Not Reportable 01/12/19 07:58 RBC Morphology Normal 01/12/19 07:58 Dimorphic RBCs Not Reportable 01/12/19 07:58 Polychromasia Not Reportable 01/12/19 07:58 Hypochromasia Not Reportable 01/12/19 07:58 Poikilocytosis Not Reportable 01/12/19 07:58 Anisocytosis Not Reportable 01/12/19 07:58 Microcytosis Not Reportable 01/12/19 07:58 Macrocytosis Not Reportable 01/12/19 07:58 Spherocytes Not Reportable 01/12/19 07:58 Pappenheimer Bodies Not Reportable 01/12/19 07:58 Sickle Cells Not Reportable 01/12/19 07:58 Target Cells Not Reportable 01/12/19 07:58 Tear Drop Cells Not Reportable 01/12/19 07:58 Ovalocytes Not Reportable 01/12/19 07:58 Helmet Cells Not Reportable 01/12/19 07:58 Mckeon-[place] Bodies Not Reportable 01/12/19 07:58 [place] Rings Not Reportable 01/12/19 07:58 [place] Cells Not Reportable 01/12/19 07:58 Bite Cells Not Reportable 01/12/19 07:58 Crenated Cell Not Reportable 01/12/19 07:58 Elliptocytes Not Reportable 01/12/19 07:58 Acanthocytes (Spur) Not Reportable 01/12/19 07:58 Rouleaux Not Reportable 01/12/19 07:58 Hemoglobin C Crystals Not Reportable 01/12/19 07:58 Schistocytes Not Reportable 01/12/19 07:58 Malaria parasites Not Reportable 01/12/19 07:58 [place] Bodies Not Reportable 01/12/19 07:58 Hem Pathologist Commnt No 01/12/19 07:58 PT 13.2 Sec. (12.2-14.9) 01/02/19 19:09 INR 0.95 (0.87-1.13) 01/02/19 19:09 APTT 26.3 Sec. (24.2-36.6) 01/02/19 19:09 Thrombin Time 17.3 Sec. (15.1-19.6) 01/02/19 19:09 Sodium 137 mmol/L (137-145) 01/11/19 07:45 Potassium 3.7 mmol/L (3.6-5.0) 01/11/19 07:45 Chloride 96.9 mmol/L (98-107) L 01/11/19 07:45 Carbon Dioxide 28 mmol/L (22-30) 01/11/19 07:45 Anion Gap 16 mmol/L 01/11/19 07:45 BUN 9 mg/dL (7-17) 01/11/19 07:45 Creatinine 0.5 mg/dL (0.7-1.2) L 01/11/19 07:45 Estimated GFR > 60 ml/min 01/11/19 07:45 BUN/Creatinine Ratio 18 % 01/11/19 07:45 Glucose 91 mg/dL (65-100) 01/11/19 07:45 Calcium 9.7 mg/dL (8.4-10.2) 01/11/19 07:45 Magnesium 1.80 mg/dL (1.7-2.3) 01/11/19 07:45 Total Bilirubin 0.50 mg/dL (0.1-1.2) 01/02/19 19:09 AST 17 units/L (5-40) 01/02/19 19:09 ALT 8 units/L (7-56) 01/02/19 19:09 Alkaline Phosphatase 67 units/L (35-129) 01/02/19 19:09 Total Creatine Kinase 255 units/L (30-135) H 01/03/19 05:12 CK-MB (CK-2) 1.7 ng/mL (0.0-4.0) 01/03/19 05:12 CK-MB (CK-2) Rel Index 0.6 (0-4) 01/03/19 05:12 Troponin T < 0.010 ng/mL (0.00-0.029) 01/03/19 05:12 Total Protein 7.5 g/dL (6.3-8.2) 01/02/19 19:09 Albumin 3.9 g/dL (3.9-5) 01/02/19 19:09 Albumin/Globulin Ratio 1.1 % 01/02/19 19:09 Lipase 42 units/L (13-60) 01/12/19 07:58 Vitamin B12 701.3 pg/mL (211-911) 01/05/19 18:28 RBC Folic Acid 618 ng/mL (>280) 01/05/19 18:28 TSH 1.860 mlU/mL (0.270-4.200) 01/05/19 18:28 Urine Color Yellow (Yellow) 01/11/19 Unknown Urine Turbidity Slightly-cloudy (Clear) 01/11/19 Unknown Urine pH 7.0 (5.0-7.0) 01/11/19 Unknown Ur Specific [place] 1.015 (1.003-1.030) 01/11/19 Unknown Urine Protein <15 mg/dl mg/dL (Negative) 01/11/19 Unknown Urine Glucose (UA) Neg mg/dL (Negative) 01/11/19 Unknown Urine Ketones Neg mg/dL (Negative) 01/11/19 Unknown Urine Blood Neg (Negative) 01/11/19 Unknown Urine Nitrite Neg (Negative) 01/11/19 Unknown Urine Bilirubin Neg (Negative) 01/11/19 Unknown Urine Urobilinogen 2.0 mg/dL (<2.0) 01/11/19 Unknown Ur Leukocyte Esterase Tr (Negative) 01/11/19 Unknown Urine WBC (Auto) 10.0 /HPF (0.0-6.0) H 01/11/19 Unknown Urine RBC (Auto) 3.0 /HPF (0.0-6.0) 01/11/19 Unknown U Epithel Cells (Auto) 16.0 /HPF (0-13.0) H 01/11/19 Unknown Urine Mucus 1+ /HPF 01/11/19 Unknown Nutrition/Malnutrition Assess - Dietary Evaluation Nutrition/Malnutrition Findings: Nutrition Notes Start: 01/03/19 13:47 Freq: Status: Active Protocol: Document 01/09/19 14:08 SA (Rec: 01/09/19 14:18 SA [id number]) Co-Sign 01/09/19 14:08 LP Nutrition Notes Initial or Follow up Reassessment Current Diagnosis Stroke Other Pertinent Diagnosis TIA, Dementia Current Diet Mechanical soft Labs/Tests K:3.2 BUN: 31 Cr: 20 Glu: 102 Pertinent Medications Reviewed Height 5 ft 4 in Weight 43.7 kg [place] Body Weight (kg) 54.54 BMI 16.5 Subjective/Other Information Patient unable to talk at time of visit (confused). Per RN, patient eating 50% of meals and drinking 100% of ONS. RN states no chewing/swallowing difficulty and N/V/D. Percent of energy/protein needs met: 90%/100% Burn Absent Trauma Absent Food Allergy Yes #3 Nutrition Diagnosis Malnutrition Diagnosis Progress(for reassessment Continues documentation) #2 Nutrition Diagnosis Underweight Diagnosis Progress(for reassessment Continues documentation) #1 Nutrition Diagnosis Inadequate oral intake As Evidenced by Signs and Symptoms pt meeting 90% of kcal needs and 100% pro needs Diagnosis Progress(for reassessment Improved documentation) Is patient on ventilator? No Is Patient Ambulatory and/or Out of Bed No REE-([facility]-confined to bed) 1136.592 Kcal/Kg value to use for calculation 36 Approximate Energy Requirements Using 1573 kcal/Kg Calculation Used for Recommendations Kcal/kg Additional Notes Pro: 52-66 g/day (1.2-1.5 g/kg BW) Fluid: 1 ml/kcal Nutrition Intervention Change Diet Order: Continue mechanical soft + Ensure Enlive Add Supplement/Snack (indicate name/kcal Ensure Enlive BID /protein ) Provides kCal: 700 Provides Protein (gm) 40 Goal #1 Continue to meet 75-100% of kcal and protein nutrient needs Goal #2 Wt maintenance and/or gain Anticipated Discharge Needs: Unable to detemrine at this time Follow-Up By: 01/13/19 Additional Comments F/U: PO and ONS intakes
[2019-01-12] MEDS: DESYREL PO SCH (22:03)
[2019-01-13] MEDS: NORVASC PO SCH (09:56)
[2019-01-13] MEDS: ROCEPHIN/NS 1 GM/50 ML 1 GM/50 ML BAG IV SCH (09:56)
[2019-01-13] MEDS: NAMENDA PO SCH ×2 (09:56→21:05)
[2019-01-13] MEDS: PROTONIX PO SCH (09:56)
[2019-01-13] MEDS: COGENTIN PO SCH (09:56)
[2019-01-13] MEDS: PLAVIX PO SCH (09:56)
[2019-01-13] MEDS: K-DUR PO SCH (09:56)
--- NOTE | 2019-01-13 11:41 | Progress Note ---
Assessment and Plan Assessment and plan: 68-year-old woman with past medical history of CVA, dementia, chronic left-sided weakness, previous hemorrhagic stroke in the past. The patient was brought in by daughter for altered mental status, which she described as unsteady swaggering gait and falling to her side, with worsening left-sided weakness. Diagnosis Acute CVA has been ruled out Dementia Hypokalemia Altered mental status Acute metabolic and toxic encephalopathy Plan MR neg for acute stroke MR does show chronic hemorrhagic cva she was seen by neurology who agreed with the plan -k was repleted -Her home med list was innacurate at time of admission, she received multiple sedative meds which she does not take at home due to this error including Depakoke, haldol and drew carroll, they have all been dc and home med list was corrected UTI -IV Rocephin started -urine culture pending-no growth - WILL DISCONTINUE ABX Acute hypokalemia. -resolved s/p repletion Generalized weakness fall precautions at all times PT/OT following Dementia with acute delirium -probably 2/2 to UTI -will monitor clinically -CT head/MRI barin neg HTN, essential -controlled -Continue Amlodipine. TIA, acute stroke ruled out -MRI brain neg -carotid doppler neg for stenosis Adult FTT -edge burnisher uppers on board. Disp: for d/c when mental status improves Awaiting placement History Interval history: Patient seen and examined, still confused, but per the discussion with family Mental status appears to be baseline Hospitalist Physical - Physical exam Narrative exam: General.: Appears well, no distress, nontoxic HEENT: Moist mucous membranes, extraocular muscles intact, no lymphadenopathy Neck: supple Cardiac: S1-S2 heard Lungs: clear to auscultation bilaterally Abdomen: soft, nontender, nondistended, bowel sounds positive Extremities: no edema clubbing or cyanosis Skin: no rash or lesions Neurologic: Patient is confused, no focal weakness, Psych: Patient is confused - Constitutional Vitals: Temp Pulse Resp BP Pulse Ox 97.6 F 65 18 146/76 100 01/13/19 07:58 01/13/19 09:56 01/13/19 08:13 01/13/19 09:56 01/13/19 08:13 General appearance: Present: no acute distress Results - Labs CBC & Chem 7: 01/12/19 07:58 01/11/19 07:45 Labs: Laboratory Last Values WBC 9.3 K/mm3 (4.5-11.0) 01/12/19 07:58 RBC 4.32 M/mm3 (3.65-5.03) 01/12/19 07:58 Hgb 11.6 gm/dl (10.1-14.3) 01/12/19 07:58 Hct 34.2 % (30.3-42.9) 01/12/19 07:58 MCV 79 fl (79-97) 01/12/19 07:58 MCH 27 pg (28-32) L 01/12/19 07:58 MCHC 34 % (30-34) 01/12/19 07:58 RDW 15.1 % (13.2-15.2) 01/12/19 07:58 Plt Count 194 K/mm3 (140-440) 01/12/19 07:58 Lymph % (Auto) 13.9 % (13.4-35.0) 01/02/19 19:09 [place] % (Auto) 7.4 % (0.0-7.3) H 01/02/19 19:09 Eos % (Auto) 0.3 % (0.0-4.3) 01/02/19 19:09 Baso % (Auto) 0.6 % (0.0-1.8) 01/02/19 19:09 Lymph # 0.7 K/mm3 (1.2-5.4) L 01/02/19 19:09 [place] # 0.4 K/mm3 (0.0-0.8) 01/02/19 19:09 Eos # 0.0 K/mm3 (0.0-0.4) 01/02/19 19:09 Baso # 0.0 K/mm3 (0.0-0.1) 01/02/19 19:09 Add Manual Diff Complete 01/12/19 07:58 Total Counted 100 01/12/19 07:58 Seg Neutrophils % 77.8 % (40.0-70.0) H 01/02/19 19:09 Seg Neuts % (Manual) 64.0 % (40.0-70.0) 01/12/19 07:58 Band Neutrophils % 0 % 01/12/19 07:58 Lymphocytes % (Manual) 25.0 % (13.4-35.0) 01/12/19 07:58 Reactive Lymphs % (Man) 0 % 01/12/19 07:58 Monocytes % (Manual) 9.0 % (0.0-7.3) H 01/12/19 07:58 Eosinophils % (Manual) 1.0 % (0.0-4.3) 01/12/19 07:58 Basophils % (Manual) 1.0 % (0.0-1.8) 01/12/19 07:58 Metamyelocytes % 0 % 01/12/19 07:58 Myelocytes % 0 % 01/12/19 07:58 Promyelocytes % 0 % 01/12/19 07:58 Blast Cells % 0 % 01/12/19 07:58 Nucleated RBC % Not Reportable 01/12/19 07:58 Seg Neutrophils # 3.8 K/mm3 (1.8-7.7) 01/02/19 19:09 Seg Neutrophils # Man 6.0 K/mm3 (1.8-7.7) 01/12/19 07:58 Band Neutrophils # 0.0 K/mm3 01/12/19 07:58 Lymphocytes # (Manual) 2.3 K/mm3 (1.2-5.4) 01/12/19 07:58 Abs React Lymphs (Man) 0.0 K/mm3 01/12/19 07:58 Monocytes # (Manual) 0.8 K/mm3 (0.0-0.8) 01/12/19 07:58 Eosinophils # (Manual) 0.1 K/mm3 (0.0-0.4) 01/12/19 07:58 Basophils # (Manual) 0.1 K/mm3 (0.0-0.1) 01/12/19 07:58 Metamyelocytes # 0.0 K/mm3 01/12/19 07:58 Myelocytes # 0.0 K/mm3 01/12/19 07:58 Promyelocytes # 0.0 K/mm3 01/12/19 07:58 Blast Cells # 0.0 K/mm3 01/12/19 07:58 WBC Morphology Not Reportable 01/12/19 07:58 Hypersegmented Neuts Not Reportable 01/12/19 07:58 Hyposegmented Neuts Not Reportable 01/12/19 07:58 Hypogranular Neuts Not Reportable 01/12/19 07:58 Smudge Cells Not Reportable 01/12/19 07:58 Toxic Granulation Not Reportable 01/12/19 07:58 Toxic Vacuolation Not Reportable 01/12/19 07:58 Dohle Bodies Not Reportable 01/12/19 07:58 Pelger-Huet Anomaly Not Reportable 01/12/19 07:58 [place] Rods Not Reportable 01/12/19 07:58 Platelet Estimate Consistent w auto 01/12/19 07:58 Clumped Platelets Not Reportable 01/12/19 07:58 Plt Clumps, EDTA Not Reportable 01/12/19 07:58 Large Platelets Not Reportable 01/12/19 07:58 Giant Platelets Not Reportable 01/12/19 07:58 Platelet Satelliting Not Reportable 01/12/19 07:58 Plt Morphology Comment Not Reportable 01/12/19 07:58 RBC Morphology Normal 01/12/19 07:58 Dimorphic RBCs Not Reportable 01/12/19 07:58 Polychromasia Not Reportable 01/12/19 07:58 Hypochromasia Not Reportable 01/12/19 07:58 Poikilocytosis Not Reportable 01/12/19 07:58 Anisocytosis Not Reportable 01/12/19 07:58 Microcytosis Not Reportable 01/12/19 07:58 Macrocytosis Not Reportable 01/12/19 07:58 Spherocytes Not Reportable 01/12/19 07:58 Pappenheimer Bodies Not Reportable 01/12/19 07:58 Sickle Cells Not Reportable 01/12/19 07:58 Target Cells Not Reportable 01/12/19 07:58 Tear Drop Cells Not Reportable 01/12/19 07:58 Ovalocytes Not Reportable 01/12/19 07:58 Helmet Cells Not Reportable 01/12/19 07:58 [place] Bodies Not Reportable 01/12/19 07:58 [place] Rings Not Reportable 01/12/19 07:58 [place] Cells Not Reportable 01/12/19 07:58 Bite Cells Not Reportable 01/12/19 07:58 Crenated Cell Not Reportable 01/12/19 07:58 Elliptocytes Not Reportable 01/12/19 07:58 Acanthocytes (Spur) Not Reportable 01/12/19 07:58 Rouleaux Not Reportable 01/12/19 07:58 Hemoglobin C Crystals Not Reportable 01/12/19 07:58 Schistocytes Not Reportable 01/12/19 07:58 Malaria parasites Not Reportable 01/12/19 07:58 [place] Bodies Not Reportable 01/12/19 07:58 Hem Pathologist Commnt No 01/12/19 07:58 PT 13.2 Sec. (12.2-14.9) 01/02/19 19:09 INR 0.95 (0.87-1.13) 01/02/19 19:09 APTT 26.3 Sec. (24.2-36.6) 01/02/19 19:09 Thrombin Time 17.3 Sec. (15.1-19.6) 01/02/19 19:09 Sodium 137 mmol/L (137-145) 01/11/19 07:45 Potassium 3.7 mmol/L (3.6-5.0) 01/11/19 07:45 Chloride 96.9 mmol/L (98-107) L 01/11/19 07:45 Carbon Dioxide 28 mmol/L (22-30) 01/11/19 07:45 Anion Gap 16 mmol/L 01/11/19 07:45 BUN 9 mg/dL (7-17) 01/11/19 07:45 Creatinine 0.5 mg/dL (0.7-1.2) L 01/11/19 07:45 Estimated GFR > 60 ml/min 01/11/19 07:45 BUN/Creatinine Ratio 18 % 01/11/19 07:45 Glucose 91 mg/dL (65-100) 01/11/19 07:45 Calcium 9.7 mg/dL (8.4-10.2) 01/11/19 07:45 Magnesium 1.80 mg/dL (1.7-2.3) 01/11/19 07:45 Total Bilirubin 0.50 mg/dL (0.1-1.2) 01/02/19 19:09 AST 17 units/L (5-40) 01/02/19 19:09 ALT 8 units/L (7-56) 01/02/19 19:09 Alkaline Phosphatase 67 units/L (35-129) 01/02/19 19:09 Total Creatine Kinase 255 units/L (30-135) H 01/03/19 05:12 CK-MB (CK-2) 1.7 ng/mL (0.0-4.0) 01/03/19 05:12 CK-MB (CK-2) Rel Index 0.6 (0-4) 01/03/19 05:12 Troponin T < 0.010 ng/mL (0.00-0.029) 01/03/19 05:12 Total Protein 7.5 g/dL (6.3-8.2) 01/02/19 19:09 Albumin 3.9 g/dL (3.9-5) 01/02/19 19:09 Albumin/Globulin Ratio 1.1 % 01/02/19 19:09 Lipase 42 units/L (13-60) 01/12/19 07:58 Vitamin B12 701.3 pg/mL (211-911) 01/05/19 18:28 RBC Folic Acid 618 ng/mL (>280) 01/05/19 18:28 TSH 1.860 mlU/mL (0.270-4.200) 01/05/19 18:28 Urine Color Yellow (Yellow) 01/11/19 Unknown Urine Turbidity Slightly-cloudy (Clear) 01/11/19 Unknown Urine pH 7.0 (5.0-7.0) 01/11/19 Unknown Ur Specific [place] 1.015 (1.003-1.030) 01/11/19 Unknown Urine Protein <15 mg/dl mg/dL (Negative) 01/11/19 Unknown Urine Glucose (UA) Neg mg/dL (Negative) 01/11/19 Unknown Urine Ketones Neg mg/dL (Negative) 01/11/19 Unknown Urine Blood Neg (Negative) 01/11/19 Unknown Urine Nitrite Neg (Negative) 01/11/19 Unknown Urine Bilirubin Neg (Negative) 01/11/19 Unknown Urine Urobilinogen 2.0 mg/dL (<2.0) 01/11/19 Unknown Ur Leukocyte Esterase Tr (Negative) 01/11/19 Unknown Urine WBC (Auto) 10.0 /HPF (0.0-6.0) H 01/11/19 Unknown Urine RBC (Auto) 3.0 /HPF (0.0-6.0) 01/11/19 Unknown U Epithel Cells (Auto) 16.0 /HPF (0-13.0) H 01/11/19 Unknown Urine Mucus 1+ /HPF 01/11/19 Unknown Nutrition/Malnutrition Assess - Dietary Evaluation Nutrition/Malnutrition Findings: Nutrition Notes Start: 01/03/19 13:47 Freq: Status: Active Protocol: Document 01/09/19 14:08 SA (Rec: 01/09/19 14:18 SA [id number]) Co-Sign 01/09/19 14:08 LP Nutrition Notes Initial or Follow up Reassessment Current Diagnosis Stroke Other Pertinent Diagnosis TIA, Dementia Current Diet Mechanical soft Labs/Tests K:3.2 BUN: 31 Cr: 20 Glu: 102 Pertinent Medications Reviewed Height 5 ft 4 in Weight 43.7 kg [place] Body Weight (kg) 54.54 BMI 16.5 Subjective/Other Information Patient unable to talk at time of visit (confused). Per RN, patient eating 50% of meals and drinking 100% of ONS. RN states no chewing/swallowing difficulty and N/V/D. Percent of energy/protein needs met: 90%/100% Burn Absent Trauma Absent Food Allergy Yes #3 Nutrition Diagnosis Malnutrition Diagnosis Progress(for reassessment Continues documentation) #2 Nutrition Diagnosis Underweight Diagnosis Progress(for reassessment Continues documentation) #1 Nutrition Diagnosis Inadequate oral intake As Evidenced by Signs and Symptoms pt meeting 90% of kcal needs and 100% pro needs Diagnosis Progress(for reassessment Improved documentation) Is patient on ventilator? No Is Patient Ambulatory and/or Out of Bed No REE-([facility]-confined to bed) 1136.592 Kcal/Kg value to use for calculation 36 Approximate Energy Requirements Using 1573 kcal/Kg Calculation Used for Recommendations Kcal/kg Additional Notes Pro: 52-66 g/day (1.2-1.5 g/kg BW) Fluid: 1 ml/kcal Nutrition Intervention Change Diet Order: Continue mechanical soft + Ensure Enlive Add Supplement/Snack (indicate name/kcal Ensure Enlive BID /protein ) Provides kCal: 700 Provides Protein (gm) 40 Goal #1 Continue to meet 75-100% of kcal and protein nutrient needs Goal #2 Wt maintenance and/or gain Anticipated Discharge Needs: Unable to detemrine at this time Follow-Up By: 01/13/19 Additional Comments F/U: PO and ONS intakes
[2019-01-13] MEDS: DESYREL PO SCH (21:05)
[2019-01-14] MEDS: NAMENDA PO SCH (09:43)
[2019-01-14] MEDS: PLAVIX PO SCH (09:43)
[2019-01-14] MEDS: K-DUR PO SCH (09:43)
[2019-01-14] MEDS: COGENTIN PO SCH (09:43)
[2019-01-14] MEDS: NORVASC PO SCH (09:43)
[2019-01-14] MEDS: PROTONIX PO SCH (09:44)
[2019-01-14] MEDS: ROCEPHIN/NS 1 GM/50 ML 1 GM/50 ML BAG IV SCH (09:45)
--- NOTE | 2019-01-14 11:09 | Progress Note ---
Assessment and Plan Assessment and plan: 68-year-old woman with past medical history of CVA, dementia, chronic left-sided weakness, previous hemorrhagic stroke in the past. The patient was brought in by daughter for altered mental status, which she described as unsteady swaggering gait and falling to her side, with worsening left-sided weakness. Diagnosis Acute CVA has been ruled out Dementia Hypokalemia Altered mental status Acute metabolic and toxic encephalopathy Plan MR neg for acute stroke MR does show chronic hemorrhagic cva she was seen by neurology who agreed with the plan -k was repleted -Her home med list was innacurate at time of admission, she received multiple sedative meds which she does not take at home due to this error including Depakoke, haldol and drew carroll, they have all been dc and home med list was corrected UTI -IV Rocephin started -urine culture pending-no growth - WILL DISCONTINUE ABX Acute hypokalemia. -resolved s/p repletion Generalized weakness fall precautions at all times PT/OT following Dementia with acute delirium -probably 2/2 to UTI -will monitor clinically -CT head/MRI barin neg HTN, essential -controlled -Continue Amlodipine. TIA, acute stroke ruled out -MRI brain neg -carotid doppler neg for stenosis Adult FTT -outpatient facility physical therapist on board. Disp: at baseline mentation. Awaiting placement Hospitalist Physical - Constitutional Vitals: Temp Pulse Resp BP Pulse Ox 98.0 F 103 H 20 115/72 97 01/14/19 07:06 01/14/19 10:00 01/14/19 10:00 01/14/19 09:43 01/14/19 10:00 General appearance: Present: no acute distress Results - Labs CBC & Chem 7: 01/12/19 07:58 01/11/19 07:45 Labs: Laboratory Last Values WBC 9.3 K/mm3 (4.5-11.0) 01/12/19 07:58 RBC 4.32 M/mm3 (3.65-5.03) 01/12/19 07:58 Hgb 11.6 gm/dl (10.1-14.3) 01/12/19 07:58 Hct 34.2 % (30.3-42.9) 01/12/19 07:58 MCV 79 fl (79-97) 01/12/19 07:58 MCH 27 pg (28-32) L 01/12/19 07:58 MCHC 34 % (30-34) 01/12/19 07:58 RDW 15.1 % (13.2-15.2) 01/12/19 07:58 Plt Count 194 K/mm3 (140-440) 01/12/19 07:58 Lymph % (Auto) 13.9 % (13.4-35.0) 01/02/19 19:09 [place] % (Auto) 7.4 % (0.0-7.3) H 01/02/19 19:09 Eos % (Auto) 0.3 % (0.0-4.3) 01/02/19 19:09 Baso % (Auto) 0.6 % (0.0-1.8) 01/02/19 19:09 Lymph # 0.7 K/mm3 (1.2-5.4) L 01/02/19 19:09 [place] # 0.4 K/mm3 (0.0-0.8) 01/02/19 19:09 Eos # 0.0 K/mm3 (0.0-0.4) 01/02/19 19:09 Baso # 0.0 K/mm3 (0.0-0.1) 01/02/19 19:09 Add Manual Diff Complete 01/12/19 07:58 Total Counted 100 01/12/19 07:58 Seg Neutrophils % 77.8 % (40.0-70.0) H 01/02/19 19:09 Seg Neuts % (Manual) 64.0 % (40.0-70.0) 01/12/19 07:58 Band Neutrophils % 0 % 01/12/19 07:58 Lymphocytes % (Manual) 25.0 % (13.4-35.0) 01/12/19 07:58 Reactive Lymphs % (Man) 0 % 01/12/19 07:58 Monocytes % (Manual) 9.0 % (0.0-7.3) H 01/12/19 07:58 Eosinophils % (Manual) 1.0 % (0.0-4.3) 01/12/19 07:58 Basophils % (Manual) 1.0 % (0.0-1.8) 01/12/19 07:58 Metamyelocytes % 0 % 01/12/19 07:58 Myelocytes % 0 % 01/12/19 07:58 Promyelocytes % 0 % 01/12/19 07:58 Blast Cells % 0 % 01/12/19 07:58 Nucleated RBC % Not Reportable 01/12/19 07:58 Seg Neutrophils # 3.8 K/mm3 (1.8-7.7) 01/02/19 19:09 Seg Neutrophils # Man 6.0 K/mm3 (1.8-7.7) 01/12/19 07:58 Band Neutrophils # 0.0 K/mm3 01/12/19 07:58 Lymphocytes # (Manual) 2.3 K/mm3 (1.2-5.4) 01/12/19 07:58 Abs React Lymphs (Man) 0.0 K/mm3 01/12/19 07:58 Monocytes # (Manual) 0.8 K/mm3 (0.0-0.8) 01/12/19 07:58 Eosinophils # (Manual) 0.1 K/mm3 (0.0-0.4) 01/12/19 07:58 Basophils # (Manual) 0.1 K/mm3 (0.0-0.1) 01/12/19 07:58 Metamyelocytes # 0.0 K/mm3 01/12/19 07:58 Myelocytes # 0.0 K/mm3 01/12/19 07:58 Promyelocytes # 0.0 K/mm3 01/12/19 07:58 Blast Cells # 0.0 K/mm3 01/12/19 07:58 WBC Morphology Not Reportable 01/12/19 07:58 Hypersegmented Neuts Not Reportable 01/12/19 07:58 Hyposegmented Neuts Not Reportable 01/12/19 07:58 Hypogranular Neuts Not Reportable 01/12/19 07:58 Smudge Cells Not Reportable 01/12/19 07:58 Toxic Granulation Not Reportable 01/12/19 07:58 Toxic Vacuolation Not Reportable 01/12/19 07:58 Dohle Bodies Not Reportable 01/12/19 07:58 Pelger-Huet Anomaly Not Reportable 01/12/19 07:58 [place] Rods Not Reportable 01/12/19 07:58 Platelet Estimate Consistent w auto 01/12/19 07:58 Clumped Platelets Not Reportable 01/12/19 07:58 Plt Clumps, EDTA Not Reportable 01/12/19 07:58 Large Platelets Not Reportable 01/12/19 07:58 Giant Platelets Not Reportable 01/12/19 07:58 Platelet Satelliting Not Reportable 01/12/19 07:58 Plt Morphology Comment Not Reportable 01/12/19 07:58 RBC Morphology Normal 01/12/19 07:58 Dimorphic RBCs Not Reportable 01/12/19 07:58 Polychromasia Not Reportable 01/12/19 07:58 Hypochromasia Not Reportable 01/12/19 07:58 Poikilocytosis Not Reportable 01/12/19 07:58 Anisocytosis Not Reportable 01/12/19 07:58 Microcytosis Not Reportable 01/12/19 07:58 Macrocytosis Not Reportable 01/12/19 07:58 Spherocytes Not Reportable 01/12/19 07:58 Pappenheimer Bodies Not Reportable 01/12/19 07:58 Sickle Cells Not Reportable 01/12/19 07:58 Target Cells Not Reportable 01/12/19 07:58 Tear Drop Cells Not Reportable 01/12/19 07:58 Ovalocytes Not Reportable 01/12/19 07:58 Helmet Cells Not Reportable 01/12/19 07:58 [place] Bodies Not Reportable 01/12/19 07:58 [place] Rings Not Reportable 01/12/19 07:58 [place] Cells Not Reportable 01/12/19 07:58 Bite Cells Not Reportable 01/12/19 07:58 Crenated Cell Not Reportable 01/12/19 07:58 Elliptocytes Not Reportable 01/12/19 07:58 Acanthocytes (Spur) Not Reportable 01/12/19 07:58 Rouleaux Not Reportable 01/12/19 07:58 Hemoglobin C Crystals Not Reportable 01/12/19 07:58 Schistocytes Not Reportable 01/12/19 07:58 Malaria parasites Not Reportable 01/12/19 07:58 [place] Bodies Not Reportable 01/12/19 07:58 Hem Pathologist Commnt No 01/12/19 07:58 PT 13.2 Sec. (12.2-14.9) 01/02/19 19:09 INR 0.95 (0.87-1.13) 01/02/19 19:09 APTT 26.3 Sec. (24.2-36.6) 01/02/19 19:09 Thrombin Time 17.3 Sec. (15.1-19.6) 01/02/19 19:09 Sodium 137 mmol/L (137-145) 01/11/19 07:45 Potassium 3.7 mmol/L (3.6-5.0) 01/11/19 07:45 Chloride 96.9 mmol/L (98-107) L 01/11/19 07:45 Carbon Dioxide 28 mmol/L (22-30) 01/11/19 07:45 Anion Gap 16 mmol/L 01/11/19 07:45 BUN 9 mg/dL (7-17) 01/11/19 07:45 Creatinine 0.5 mg/dL (0.7-1.2) L 01/11/19 07:45 Estimated GFR > 60 ml/min 01/11/19 07:45 BUN/Creatinine Ratio 18 % 01/11/19 07:45 Glucose 91 mg/dL (65-100) 01/11/19 07:45 Calcium 9.7 mg/dL (8.4-10.2) 01/11/19 07:45 Magnesium 1.80 mg/dL (1.7-2.3) 01/11/19 07:45 Total Bilirubin 0.50 mg/dL (0.1-1.2) 01/02/19 19:09 AST 17 units/L (5-40) 01/02/19 19:09 ALT 8 units/L (7-56) 01/02/19 19:09 Alkaline Phosphatase 67 units/L (35-129) 01/02/19 19:09 Total Creatine Kinase 255 units/L (30-135) H 01/03/19 05:12 CK-MB (CK-2) 1.7 ng/mL (0.0-4.0) 01/03/19 05:12 CK-MB (CK-2) Rel Index 0.6 (0-4) 01/03/19 05:12 Troponin T < 0.010 ng/mL (0.00-0.029) 01/03/19 05:12 Total Protein 7.5 g/dL (6.3-8.2) 01/02/19 19:09 Albumin 3.9 g/dL (3.9-5) 01/02/19 19:09 Albumin/Globulin Ratio 1.1 % 01/02/19 19:09 Lipase 42 units/L (13-60) 01/12/19 07:58 Vitamin B12 701.3 pg/mL (211-911) 01/05/19 18:28 RBC Folic Acid 618 ng/mL (>280) 01/05/19 18:28 TSH 1.860 mlU/mL (0.270-4.200) 01/05/19 18:28 Urine Color Yellow (Yellow) 01/11/19 Unknown Urine Turbidity Slightly-cloudy (Clear) 01/11/19 Unknown Urine pH 7.0 (5.0-7.0) 01/11/19 Unknown Ur Specific [place] 1.015 (1.003-1.030) 01/11/19 Unknown Urine Protein <15 mg/dl mg/dL (Negative) 01/11/19 Unknown Urine Glucose (UA) Neg mg/dL (Negative) 01/11/19 Unknown Urine Ketones Neg mg/dL (Negative) 01/11/19 Unknown Urine Blood Neg (Negative) 01/11/19 Unknown Urine Nitrite Neg (Negative) 01/11/19 Unknown Urine Bilirubin Neg (Negative) 01/11/19 Unknown Urine Urobilinogen 2.0 mg/dL (<2.0) 01/11/19 Unknown Ur Leukocyte Esterase Tr (Negative) 01/11/19 Unknown Urine WBC (Auto) 10.0 /HPF (0.0-6.0) H 01/11/19 Unknown Urine RBC (Auto) 3.0 /HPF (0.0-6.0) 01/11/19 Unknown U Epithel Cells (Auto) 16.0 /HPF (0-13.0) H 01/11/19 Unknown Urine Mucus 1+ /HPF 01/11/19 Unknown Nutrition/Malnutrition Assess - Dietary Evaluation Nutrition/Malnutrition Findings: Nutrition Notes Start: 01/03/19 13:47 Freq: Status: Active Protocol: Document 01/13/19 15:35 [facility] (Rec: 01/13/19 15:41 [facility] [id number]) Nutrition Notes Initial or Follow up Reassessment Other Pertinent Diagnosis TIA, Dementia Current Diet Mechanical soft + Ensure Enlive BID Labs/Tests No current available Pertinent Medications Reviewed Height 5 ft 4 in Weight 43.7 kg [place] Body Weight (kg) 54.54 BMI 16.5 Subjective/Other Information Pt scheduled for D/C today. Per pt daughter, pt eats when she wants to do so. She has consumed 57% of meals since last assessment; she drinks ONS as well. Percent of energy/protein needs met: 100% energy/pro Burn Absent Trauma Absent #3 Nutrition Diagnosis Malnutrition Diagnosis Progress(for reassessment Continues documentation) #2 Nutrition Diagnosis Underweight Diagnosis Progress(for reassessment Continues documentation) #1 Nutrition Diagnosis Inadequate oral intake As Evidenced by Signs and Symptoms PO intake of meals meeting 100 % energy and pro needs Diagnosis Progress(for reassessment Resolved documentation) Is patient on ventilator? No Is Patient Ambulatory and/or Out of Bed Yes REE-([facility]-ambulatory/OOB) [ 1224.600 [id number]] Kcal/Kg value to use for calculation 35 Approximate Energy Requirements Using 1530 kcal/Kg Calculation Used for Recommendations Kcal/kg Additional Notes Pro needs 1.2-1.5g/k-66g/ day Fluid needs 1ml/kcal Nutrition Intervention Change Diet Order: Continue current diet order Add Supplement/Snack (indicate name/kcal Ensure Enlive BID /protein ) Provides kCal: 700 Provides Protein (gm) 40 Goal #1 PO intake of meals plus ONS to meet 100% energy and pro needs Goal #2 Wt maintenance and/or gain Anticipated Discharge Needs: Continue Ensure Enlive 1-2 times daily for wt maintenance Follow-Up By: 01/20/19 Additional Comments F/U: intakes, wt
--- NOTE | 2019-01-14 12:04 | Discharge Summary ---
Providers - Providers Date of Admission: 01/02/19 21:09 Attending physician: JALEN GIL MD 01/03/19 06:00 Physical Therapy Evaluation and Treat [CONS] Routine Comment: Reason For Exam: TIA Speech Therapy Evaluation and Treat [CONS] Routine Reason For Exam: dysphagia 01/03/19 13:02 Occupational Therapy Evaluate and Treat [CONS] Routine Comment: Reason For Exam: cva 01/05/19 08:10 Consult to Physician [CONS] Routine Comment: Consulting Provider: JADA LIGHT Physician Instructions: Reason For Exam: cva 01/08/19 16:34 Consult to Case Management [CONS] Routine Services Needed at Discharge: Other Notified:: BREANEN Comment:: subacute rehab placement 01/09/19 13:04 Physical Therapy Evaluation and Treat [CONS] Routine Comment: Reason For Exam: GENERALIZED WEAKNESS Primary care physician: JERMAIN ROSARIO Hospitalization Reason for admission: AMS Condition: Good Hospital course: 68-year-old woman with past medical history of CVA, dementia, chronic left-sided weakness, previous hemorrhagic stroke in the past. The patient was brought in by daughter for altered mental status, which she described as unsteady swaggering gait and falling to her side, with worsening left-sided weakness. During the hospitalization the patient had imaging as noted blow that was negative. Also the Home medication was reconciled and corrected per the daughters information. she was noted to have a UTI and treated, cultures showed no growth. She remained with encephalopathy which appears to be her baseline per family at this time. Family requested placement closer to [place] and after this was arranged, they requested home with home health instead. Neurology evaluated the patient also with no further recommendation Imaging MR neg for acute stroke MR does show chronic hemorrhagic cva Diagnosis Acute metabolic and toxic encephalopathy Acute CVA has been ruled out Dementia With Delirium- Now resolved Hypokalemia Acute Cystitis Generalized weakness HTN, essential Adult FTT Disposition: DC/TX-06 HOME UNDER HOME [facility] Time spent for discharge: 35 MINS Core Measure Documentation - Palliative Care Palliative Care/ Comfort Measures: Not Applicable - Core Measures Any of the following diagnoses?: none Exam - Physical Exam Narrative exam: General.: Appears well, no distress, nontoxic HEENT: Moist mucous membranes, extraocular muscles intact, no lymphadenopathy Neck: supple Cardiac: S1-S2 heard Lungs: clear to auscultation bilaterally Abdomen: soft, nontender, nondistended, bowel sounds positive Extremities: no edema clubbing or cyanosis Skin: no rash or lesions Neurologic: Patient is confused, no focal weakness, Psych: Patient is confused - Constitutional Vitals: Temp Pulse Resp BP Pulse Ox 98.0 F 103 H 20 115/72 97 01/14/19 07:06 01/14/19 10:00 01/14/19 10:00 01/14/19 09:43 01/14/19 10:00 Plan Activity: advance as tolerated, fall precautions Diet: low fat Special Instructions: record daily weights, record daily BP diary Follow up with: JERMAIN ROSARIO MD [Primary Care Provider] - 7 Days Prescriptions: AtorvaSTATin [Lipitor] 20 mg PO QHS #30 tablet Benztropine [Cogentin] See Protocol PO QDAY #30 tablet Potassium Chloride [K-Dur] 20 meq PO QDAY #30 tablet clonazePAM [Klonopin] 1 mg PO TID PRN #30 tablet PRN Reason: Agitation Memantine HCl [Namenda] 10 mg PO BID #60 tablet Amlodipine Besylate [Norvasc] 5 mg PO QDAY #30 tablet
[2019-01-14 13:38] VITALS: BP 135/73
== END 2019-01-14 18:15 | disposition home health service (06) | DRG 689 ==
LOC: ED 18:12 → 4A 21:09 → 2B-ACE 01-08 18:25
PROVIDERS: ADMIT Internal Medicine; ATTEND Internal Medicine
DX: N30.00 Acute cystitis without hematuria (principal); G92 Toxic encephalopathy; G45.9 Transient cerebral ischemic attack, unspecified; E46 Unspecified protein-calorie malnutrition; Z68.1 Body mass index [BMI] 19.9 or less, adult; I50.20 Unspecified systolic (congestive) heart failure; F03.91 Unspecified dementia, unspecified severity, with behavioral disturbance; F05 Delirium due to known physiological condition; I69.354 Hemiplegia and hemiparesis following cerebral infarction affecting left non-dominant side; E87.6 Hypokalemia; R62.7 Adult failure to thrive; I11.0 Hypertensive heart disease with heart failure; Z88.6 Allergy status to analgesic agent; Z91.041 Radiographic dye allergy status; Z91.013 Allergy to seafood; Z90.49 Acquired absence of other specified parts of digestive tract
CPT/HCPCS: 36415; 70450; 70544; 70551; 71045; 72125; 72170; 80048; 80053; 81001; 82550; 82553; 82607; 82747; 83690; 83735; 84132; 84443; 84484; 85007; 85025; 85610; 85670; 85730; 87086; 93005; 93010; 93306; 93880; G0378; A9270-GY; J0696; J2060; J7030

== ENCOUNTER 2020-02-01 12:21 | Emergency (ER) | payer MEDICARE ==
--- NOTE | 2020-02-01 14:46 | Emergency Department Report ---
ED General Adult HPI - General Chief complaint: Fall Stated complaint: FALL/AMS Time Seen by Provider: 02/01/20 14:35 Source: patient, EMS ( EMS documentation not available at time of chart dictation ), RN notes reviewed, old records reviewed Mode of arrival: Stretcher Limitations: Other (Patient is demented. Patient is a poor historian) - History of Present Illness Initial comments: This is a 69-year-old female. Her past medical history includes intracranial hemorrhage, left-sided weakness, hypertension, high cholesterol, hyperlipidemia, thyroid nodules, had unremarkable TSH in 2019. She is brought to the hospital by EMS with a complaint of fall. At the moment, the patient is demented, and offers no complaints. She cannot describe the qualitative or historical aspects of her "fall." She is not currently accompanied by a friend or family member. I went out into the waiting room to see if her family members were there, family member was called overhead, and there was no answer. I also called up the family member at the listed phone number; [phone], left a voicemail for call back, and so far, nobody has called back. At the moment, patient laying comfortably in stretcher, in no acute distress, no additional history is availa ble at this time. -: unknown Radiation: other Quality: constant Consistency: other Improves with: other Worsens with: other Associated Symptoms: other - Related Data Home Medications Medication Instructions Recorded Confirmed Last Taken diphenhydrAMINE [Benadryl CAP] 50 mg PO QHS 05/28/18 12/08/19 1 Day Ago ~01/01/19 Clopidogrel [Plavix] 75 mg PO QDAY 01/02/19 12/08/19 02/01/20 09:00 traZODone [Desyrel] 50 mg PO HS 01/03/19 12/08/19 01/31/20 21:00 Quetiapine Fumarate [SEROquel] 25 mg PO QDAY 12/08/19 12/08/19 02/01/20 09:00 Previous Rx's Medication Instructions Recorded Last Taken Type Amlodipine Besylate [Norvasc] 5 mg PO QDAY #30 tablet 01/14/19 02/01/20 09:00 Rx AtorvaSTATin [Lipitor] 20 mg PO QHS #30 tablet 01/14/19 02/01/20 09:00 Rx Benztropine [Cogentin] See Protocol PO QDAY #30 tablet 01/14/19 Unknown Rx Memantine HCl [Namenda] 10 mg PO BID #60 tablet 01/14/19 02/01/20 09:00 Rx clonazePAM [Klonopin] 1 mg PO TID PRN #30 tablet 01/14/19 Unknown Rx levETIRAcetam [Keppra TAB] 500 mg PO BID #60 tablet 12/09/19 02/01/20 09:00 Rx Allergies Allergy/AdvReac Type Severity Reaction Status Date / Time aspirin Allergy Hives Verified 03/10/18 00:19 haloperidol [From Haldol] Allergy Unknown Verified 12/08/19 00:47 shellfish derived Allergy Hives Verified 03/10/18 00:19 iv dye Allergy Hives Uncoded 03/10/18 00:19 ED Review of Systems ROS: Stated complaint: FALL/AMS Other details as noted in HPI Comment: Unobtainable due to pts medical conditions (See history of present illness) ED Past Medical Hx - Past Medical History Previous Medical History?: Yes Hx Hypertension: Yes Hx CVA: Yes Hx Heart Attack/AMI: No Hx Congestive Heart Failure: No Hx Deep Vein Thrombosis: No Hx Seizures: No Hx Dementia: Yes Additional medical history: "brain bleed" - Surgical History Past Surgical History?: Yes Hx Coronary Stent: No Hx Open Heart Surgery: No Hx Pacemaker: No Hx Internal Defibrillator: No Hx Cholecystectomy: Yes Hx Appendectomy: Yes Hx Breast Surgery: No - Social History Smoking Status: Unknown if ever smoked - Medications Home Medications: Home Medications Medication Instructions Recorded Confirmed Last Taken Type diphenhydrAMINE [Benadryl CAP] 50 mg PO QHS 05/28/18 12/08/19 1 Day Ago History ~01/01/19 Clopidogrel [Plavix] 75 mg PO QDAY 01/02/19 12/08/19 02/01/20 09:00 History traZODone [Desyrel] 50 mg PO HS 01/03/19 12/08/19 01/31/20 21:00 History Amlodipine Besylate [Norvasc] 5 mg PO QDAY #30 tablet 01/14/19 12/08/19 02/01/20 09:00 Rx AtorvaSTATin [Lipitor] 20 mg PO QHS #30 tablet 01/14/19 12/08/19 02/01/20 09:00 Rx Benztropine [Cogentin] See Protocol PO QDAY #30 tablet 01/14/19 12/08/19 Unknown Rx Memantine HCl [Namenda] 10 mg PO BID #60 tablet 01/14/19 12/08/19 02/01/20 09:00 Rx clonazePAM [Klonopin] 1 mg PO TID PRN #30 tablet 01/14/19 12/08/19 Unknown Rx Quetiapine Fumarate [SEROquel] 25 mg PO QDAY 12/08/19 12/08/19 02/01/20 09:00 History levETIRAcetam [Keppra TAB] 500 mg PO BID #60 tablet 12/09/19 02/01/20 09:00 Rx ED Physical Exam - General Limitations: Other (The patient is demented) General appearance: alert, in no apparent distress - Head Head exam: Present: atraumatic, normocephalic - Eye Eye exam: Present: normal appearance, EOMI. Absent: nystagmus - ENT ENT exam: Present: normal exam, normal orophraynx, mucous membranes moist, TM's normal bilaterally, normal external ear exam, other (There is no mastoid tenderness. There is no hemotympanum) - Neck Neck exam: Present: normal inspection, full ROM. Absent: tenderness, meningismus - Respiratory Respiratory exam: Present: normal lung sounds bilaterally. Absent: respiratory distress - Cardiovascular Cardiovascular Exam: Present: regular rate, normal rhythm, normal heart sounds. Absent: bradycardia, tachycardia, irregular rhythm, systolic murmur, diastolic murmur, rubs, gallop - GI/Abdominal GI/Abdominal exam: Present: soft, normal bowel sounds. Absent: distended, tenderness, guarding, rebound, rigid, pulsatile mass - Extremities Exam Extremities exam: Present: normal inspection, other (2+ pulses noted in the bilateral upper and lower extremities. There is no palpable cord. negative Homans sign. Muscular compartments are soft. The pelvis is stable.). Absent: calf tenderness - Back Exam Back exam: Present: normal inspection. Absent: tenderness, CVA tenderness (R), CVA tenderness (L), paraspinal tenderness, vertebral tenderness - Neurological Exam Neurological exam: Present: alert (The patient is awake. The patient follows commands. The patient moves 4 extremities. Detailed neurologic examination not possible secondary to underlying dementia.) - Psychiatric Psychiatric exam: Present: flat affect - Skin Skin exam: Present: warm, dry, intact, normal color. Absent: rash ED Course Vital Signs 02/01/20 13:54 Temperature 97.2 F L Pulse Rate 68 Respiratory 16 Rate Blood Pressure 144/88 O2 Sat by Pulse 100 Oximetry - Reevaluation(s) Reevaluation #1: 02/01/20 15:37 Differential diagnosis, including but not limited to: Physical deconditioning, pneumonia, urinary tract infection, intracranial injury, cervical spine injury, mechanical fall, electrolyte derangement 02/01/20 15:37 Assessment and plan: 69-year-old female with witnessed mechanical fall. After the initial history and physical were performed and documented, the patient's daughter called me back. She reported that the patient had a witnessed mechan ical fall while walking. The patient's daughter states that there is been no fever, cough, coronavirus exposure, no vomiting or diarrhea, or no additional complaints. The patient has a cane and walker at home, but does not typically use these. She lives at home with the patient is able to help her out with her activities of daily living. We will obtain CT scan of the brain, cervical spine, x-ray of the pelvis to evaluate for traumatic disease. X-ray of the chest, urinalysis will be obtained. EKG, and screening laboratory studies will be obtained. In addition, a case management consultation is requested to determine if patient is eligible for home physical therapy, or home health. I discussed this with the patient's daughter, who verbalizes understanding. I also encouraged her to engage family and friends to assist in helping the patient with activities of daily living. She was also counseled to make certain that the patient is walking only with adult supervision, that she uses her cane and/or walker continuously. Reevaluation #2: 02/01/20 17:38 Patient is resting comfortably for hours, with no clinical decompensation or loss of consciousness. Objective imaging does not demonstrate any significant traumatic abnormalities. Laboratory studies fairly unremarkable. ED Medical Decision Making - Lab Data Result diagrams: 02/01/20 16:46 02/01/20 Unknown Vital Signs 02/01/20 13:54 Temperature 97.2 F L Pulse Rate 68 Respiratory 16 Rate Blood Pressure 144/88 O2 Sat by Pulse 100 Oximetry - EKG Data -: EKG Interpreted by Me Rate: bradycardia - EKG Data 02/01/20 16:03 Sinus rhythm, bradycardia, left axis deviation, borderline left anterior fascicular block, poor R wave progression, left ventricular hypertrophy, motion artifact, this is not a STEMI - Radiology Data Radiology results: pending, report reviewed, image reviewed interpreted by me: X-ray of the chest, negative for acute disease, hyperinflated lungs, calcified aortic arch X-ray of the pelvis, negative for acute disease, DJD, surgical clips noted. No acute pathology. Noncontrast CT scan of the brain, cervical spine negative for acute disease. Critical care attestation.: If time is entered above; I have spent that time in minutes in the direct care of this critically ill patient, excluding procedure time. ED Disposition Clinical Impression: History of fall Disposition: -01 TO HOME OR SELFCARE Is pt being admited?: No Does the pt Need Aspirin: No Condition: Stable Additional Instructions: Please follow-up with your primary care doctor within 7 to 10 days. Patient should have an adult with her at all times, and should not walk without assistance, and she should typically walk with her cane and/or walker. Patient may continue her outpatient medications. Please return to the emergency room right away with new, worsened or different symptoms, or symptoms not present on the initial emergency room evaluation. Cultures were sent today, and results to be available in the next 3 to 5 days. Please have your primary care doctor contact the medical records department to obtain culture results. Referrals: JERMAIN ROSARIO MD [Staff Physician] - 7-10 days [facility] [Provider Group] - 7-10 days [facility] [Provider Group] - 7-10 days
--- NOTE | 2020-02-01 15:48 | Cat Scan Report ---
CT HEAD WITHOUT CONTRAST HISTORY: hx of fall, head trauma. TECHNIQUE: Axial imaging performed from the skull apex through the skull base without the use of con trast. All CT scans at this location are performed using CT dose reduction for ALARA by means of aut omated exposure control. COMPARISON: 12/07/2019 FINDINGS: Parenchyma: No acute intracranial hemorrhage or parenchymal abnormality.. Mild hypoattenuation thro ughout the white matter is noted and consistent with chronic microvascular ischemic disease. Chronic focal infarct in the medial right frontal lobe is again noted and unchanged. Ventricles: There is mild diffuse brain atrophy with commensurate ventricular enlargement which is l ikely age appropriate. Soft tissues: Soft tissues including the orbits appear normal. Bones: No acute osseous abnormality. Sinuses: Sinuses and mastoid air cells are clear. IMPRESSION: No acute abnormality. Signer Name: Ethan Jeong Jr, MD Signed: 02/01/2020 3:43 PM Workstation Name: [id number]
[2020-02-01 15:52] LABS: Bilirubin,Urine NEG (Negative); Blood,Urine NEG (Negative); Color,Urine Yellow (Yellow); Mucus,Urine FEW /HPF; Protein,Urine <15 mg/dL mg/dL (Negative); Urobilinogen,Urine < 2.0 mg/dL (<2.0); WBC,Urine < 1.0 /HPF (0.0-6.0)
--- NOTE | 2020-02-01 15:58 | Cat Scan Report ---
CT CERVICAL SPINE WITHOUT CONTRAST INDICATION: Fall, head trauma, injury, neck pain. TECHNIQUE: Axial imaging performed through the cervical spine without the use of contrast. Sagittal and coronal reconstructed images were also reviewed. All CT scans at this location are performed us ing CT dose reduction for ALARA by means of automated exposure control. COMPARISON: None FINDINGS: Alignment: Spinal alignment is normal. There is reversal of the normal cervical lordosis on the sagi ttal reconstructed images. Bones: There is no acute osseous abnormality. Moderate to severe discogenic DJD is identified at C4 -5, C5-6 and C6-7. Minimal facet arthropathy is identified at these levels. No hypertrophic changes. Soft tissues: No acute or significant incidental soft tissue abnormality. IMPRESSION: Moderate to severe cervical spondylosis. No acute injury is identified. Signer Name: Ethan Jeong Jr, MD Signed: 02/01/2020 3:54 PM Workstation Name: [email or web address][id number]
[2020-02-01 17:15] LABS: BUN/Creatinine Ratio 12; Blood Urea Nitrogen 11 mg/dL (7-17); Calcium 9.6 mg/dL (8.4-10.2); Hemolysis Index 160
--- NOTE | 2020-02-01 17:22 | XRay Report ---
Pelvis single view INDICATION: Pelvic pain following injury IMPRESSION: No fracture or subluxation of the pelvis is identified. Signer Name: Angel Duran MD Signed: 02/01/2020 5:18 PM Workstation Name: [id number]
--- NOTE | 2020-02-01 17:22 | XRay Report ---
CHEST 1 VIEW 02/01/2020 4:15 PM INDICATION / CLINICAL INFORMATION: fall weakness. COMPARISON: Chest x-ray 12/07/2019 FINDINGS: Patient's chin obscures evaluation of left lung apex. SUPPORT DEVICES: None. HEART / MEDIASTINUM: No significant abnormality. LUNGS / PLEURA: No significant pulmonary or pleural abnormality. No pneumothorax. ADDITIONAL FINDINGS: No significant additional findings. IMPRESSION: 1. No acute findings. Signer Name: Christophe Ch MD Signed: 02/01/2020 5:18 PM Workstation Name: [id number]
[2020-02-01 17:36] LABS: Hematocrit 40.8 % (30.3-42.9)
[2020-02-01 18:47] VITALS: BP 149/83
== END 2020-02-01 19:20 | disposition home or self-care (01) ==
LOC: ED 12:21
DX: R53.1 Weakness (principal); W18.30XA Fall on same level, unspecified, initial encounter; Y93.89 Activity, other specified; Y92.89 Other specified places as the place of occurrence of the external cause; Y99.8 Other external cause status; I10 Essential (primary) hypertension; Z86.73 Personal history of transient ischemic attack (TIA), and cerebral infarction without residual deficits
CPT/HCPCS: 36415; 70450; 71045; 72125; 72170; 80048; 80320; 81001; 82550; 83735; 85014; 85018; 85049; 87086; 93005; 93010; 99285; G0480